=== PATIENT | male | born 1960 | race Caucasian/White ===

== ENCOUNTER 2021-07-26 09:36 | Outpatient (REF) | payer OTHER, SELFPAY ==
[2021-07-26 11:09] LABS: Alanine Aminotransferase 21 U/L (0-40); Albumin Level 4.1 g/dL (3.5-5.0); Alkaline Phosphatase 55 U/L (39-117); Anion Gap 12 (12-20); Aspartate Amino Transferase 20 U/L (5-37); Bilirubin Total 0.4 mg/dL (0.0-1.0); Blood Urea Nitrogen 19 mg/dL (9-16); Calcium 9.1 mg/dL (8.4-10.2); Carbon Dioxide 25 mmol/L (22-29); Chloride 107 mmol/L (96-108); Cholesterol 200 mg/dL; Estimated Glomerular Filt Rate > 60; Glucose Fasting 103 mg/dL (60-99); HDL Cholesterol 71 mg/dL; LDL Cholesterol Calculated 99 mg/dl; Potassium 4.3 mmol/L (3.3-5.1); Sodium 140 mmol/L (135-145); Total Protein 6.6 g/dL (6.5-8.0); Triglycerides 152 mg/dL
[2021-07-26 11:31] LABS: Prostate Specific Antigen Scr 0.32 ng/mL (<0.05-4.0); TSH reflex Free T4 0.94 uIU/mL (0.32-4.0)
== END 2021-07-26 09:37 | disposition home or self-care (01) ==
LOC: HO.WFDLDS 09:36
PROVIDERS: Visit Provider Family Medicine
DX: Z00.00 Encounter for general adult medical examination without abnormal findings (principal); Z12.5 Encounter for screening for malignant neoplasm of prostate
CPT/HCPCS: 36415; 80053; 80061; 84153; 84443

== ENCOUNTER 2022-01-15 10:56 | Outpatient (REF) | payer OTHER, SELFPAY ==
[2022-01-15 14:03] LABS: Basophils Percent Auto 0.9 % (0-2); Eosinophils Absolute Auto 0.1 X10*3/uL (0.0-0.4); Eosinophils Percent Auto 1.6 % (0-4); Hematocrit 44.7 % (42.0-52.0); Hemoglobin 15.6 g/dl (14.0-18.0); Imm Gran Abs Auto 0.01 X10*3/uL (0.00-0.03); Imm Gran Pct Auto 0.2 % (0.0-0.4); Lymphocytes Percent Auto 45.9 % (20-40); MANUAL DIFF FLAG SCAN; Mean Corpuscular HGB Conc 34.9 g/dl (31.0-36.0); Mean Corpuscular Hemoglobin 32.8 pg (27.0-33.0); Mean Corpuscular Volume 94.1 fL (80.0-98.0); Mean Platelet Volume 9.5 fL (9.4-12.4); Monocytes Absolute Auto 0.5 X10*3/uL (0.1-1.2); Monocytes Percent Auto 10.4 % (2-11); Neutrophils Absolute Auto 1.8 x10*3/uL (2.0-8.3); Platelet Count 170 X10*3/uL (160-400); Red Blood Count 4.75 X10*6/uL (4.60-5.80); Red Cell Distribution Width 11.7 % (11.0-16.0); SCAN SMEAR FLAG 1; White Blood Count 4.4 X10*3/uL (4.8-10.8)
[2022-01-15 14:45] LABS: SLIDE REVIEW VERIFIED
== END 2022-01-15 10:57 | disposition home or self-care (01) ==
LOC: HO.WFDLDS 10:56
PROVIDERS: Visit Provider Hospitalist
DX: N64.9 Disorder of breast, unspecified (principal)
CPT/HCPCS: 36415; 85025

== ENCOUNTER 2022-02-27 07:28 | Outpatient (REF) | payer OTHER, SELFPAY ==
[2022-02-27 12:41] LABS: Alanine Aminotransferase 20 U/L (0-40); Alkaline Phosphatase 40 U/L (39-117); Anion Gap 13 (12-20); Aspartate Amino Transferase 21 U/L (5-37); Bilirubin Total 0.7 mg/dL (0.0-1.0); Blood Urea Nitrogen 16 mg/dL (9-16); Calcium 8.8 mg/dL (8.4-10.2); Carbon Dioxide 28 mmol/L (22-29); Chloride 104 mmol/L (96-108); Estimated Glomerular Filt Rate > 60; Glucose Fasting 100 mg/dL (60-99); Potassium 4.3 mmol/L (3.3-5.1); Sodium 141 mmol/L (135-145); Total Protein 6.4 g/dL (6.5-8.0)
[2022-02-27 13:08] LABS: TSH reflex Free T4 1.25 uIU/mL (0.32-4.0)
[2022-02-28 09:04] LABS: Prolactin 10.8 ng/mL (2.0-18.0)
[2022-03-03 19:39] LABS: Estradiol Ultra Sensitive 21 pg/mL (< OR = 29)
[2022-03-04 13:44] LABS: Testosterone, Free 73.8 pg/mL (35.0-155.0); Testosterone, Total 636 ng/dL (250-1100)
== END 2022-02-27 07:29 | disposition home or self-care (01) ==
LOC: HO.WFDLDS 07:28
PROVIDERS: Visit Provider Family Medicine
DX: Z00.00 Encounter for general adult medical examination without abnormal findings (principal); N64.9 Disorder of breast, unspecified
CPT/HCPCS: 36415; 80053; 82670; 83002; 84146; 84402; 84403; 84443

== ENCOUNTER 2022-03-26 10:38 | Outpatient (REF) | payer OTHER, SELFPAY ==
--- NOTE | ~2022-03-26 | MM_ITS ---
EXAMINATION: MM DIAGNOSTIC DIGITAL BREAST TOMOSYNTHESIS, BILATERAL US DIAGNOSTIC ULTRASOUND BREAST, BILATERAL CLINICAL INFORMATION: 61-year-old male with nipple/retroareolar fullness and tenderness, greater on right, recently decreased. No prior breast imaging. COMPARISON: None (current study represents initial baseline exam). TECHNIQUE: Digital breast tomosynthesis is performed in both the craniocaudal and mediolateral oblique views along with computer-aided detection (CAD). Synthesized 2D images are generated from the tomosynthesis. Additional left CC view is provided. Ultrasound bilateral breasts is performed using grayscale imaging and color Doppler without and with harmonics. Imaging targeted to the periareolar and retroareolar breasts. FINDINGS: The breasts are almost entirely fatty (ACR BI-RADS breast composition Category a). There is mild benign gynecomastia retroareolar right breast. No definite gynecomastia pattern on left. Neither breast shows mass or architectural abnormality. No abnormal calcifications. The axilla and skin contours are unremarkable. No skin thickening or coarsening of the stromal markings. Ultrasound demonstrates no cystic or solid mass or architectural abnormality. There is trace gynecomastia immediately beneath right nipple less conspicuous than the mammography. No skin thickening or edema tracking in soft tissue planes. Results are discussed with the patient at time of visit. MM/MM tomosynthesis diagnostic BI IMPRESSION: 1. Mild benign gynecomastia retroareolar right breast. 2. No mammographic evidence of malignancy or inflammatory changes. 3. Unremarkable bilateral ultrasound. ASSESSMENT: BI-RADS 2: Benign RECOMMENDATION: -Patient may be managed based on the clinical impression. -If clinically indicated, further evaluation may be considered with surgical consult.
== END 2022-03-26 10:39 | disposition home or self-care (01) ==
LOC: HO.MAMMO 10:38
PROVIDERS: PCP Family Medicine; Visit Provider Family Medicine
DX: N64.4 Mastodynia (principal); N62 Hypertrophy of breast; N64.9 Disorder of breast, unspecified
CPT/HCPCS: 76642; 77062; 77066

== ENCOUNTER 2022-09-17 09:57 | Outpatient (AMB) | payer OTHER, SELFPAY ==
[2022-09-17 10:02] VITALS: BP 128/80; PULSE 109; O2SAT 98; BMI 24.7
--- NOTE | 2022-09-17 10:02 | MHC.PC.OV ---
Vital Signs 09/17/22 10:02 Height 5 ft 10 in Weight 172 lb BMI 24.7 BP 128/80 Blood Pressure Location Lt brachial Position Sitting Pulse 109 H Pulse Source Pulse Oximeter Pulse Oximetry (%) 98 Oxygen Delivery Method Room Air Intake Visit Reasons: f/u ekg and chronic conditions Intake Note: Patient is here for follow up on ekg, and chronic conditions. Allergies No Known Allergies Allergy (Verified 09/17/22 10:06) Tobacco use date assessed: 09/17/22 Dental Screening Dental Screen Date: 09/17/22 Did you have a dental visit in the last 12 months?: Yes Did you have a dental problem in the last 6 months where you did not have access to dental care?: No Was dental information given to patient?: No HPI f/u ekg and chronic conditions HPI Details 62 y/o male presents to f/u EKG and chronic conditions. Pt had been having complaints of fatigue with tachycardia. He also was dehydrated last office visit. Pt states he feels much improved today. Pt reports he had a rash after getting his covid booster and his shingles shot. He is unsure which injection had given him the rash. He reports ongoing rash. [facility] Medical History Hernia Surgical History History of hernia surgery Family History Other Mental health disorder Substance use disorder Social History Housing: House Alcohol intake: current Alcohol intake frequency: 3 or more drinks per day Alcohol type: beer Patient Tobacco Use Status: Never used Tobacco e-Cigarette/Vaping Use: Never Used Second Hand Smoke Exposure: No service: No Current occupational status: employed Current occupational exposures/hazards: No Cognitive needs: No Hearing needs: No Vision needs: Yes (glasses) Questionnaire Thrive Questionnaire Date Thrive assessed: 11/07/21 MIKE-7 AMB Questionnaire MIKE-7 Date IMKE - 7 assessed: 03/07/22 Source: Developed by Drs. Emmett Ma, Abiola Alvarez, Khalif Genao and colleagues, with an educational iftikhar from [employer]. Review of Systems Const Denies chills, Denies fatigue, Denies fever(s), Denies headache(s) and Denies weakness ENT Denies dizziness and Denies headache(s) Card Denies chest pain, Denies lightheadedness, Denies dyspnea and Denies other (Palpitations) Resp Denies cough, Denies dyspnea, Denies wheezing and Denies other ( shortness of breath) Musc Denies numbness and Denies tingling Neuro Denies dizziness, Denies headache(s), Denies numbness, Denies tingling, Denies paresthesias and Denies weakness Psych Denies anxiety and Denies depression Endo Denies fatigue Aller/Immun Denies wheezing Physical exam (Primary Care) Vital Signs: Last Vital Signs Pulse 109 H 09/17/22 10:02 BP 128/80 09/17/22 10:02 Pulse Ox 98 09/17/22 10:02 Oxygen Delivery Method Room Air 09/17/22 10:02 BMI result Body Mass Index 24.7 Tobacco/Smoking Status: Tobacco use Status Tobacco use date assessed 09/17/22 09/17/22 10:10 Patient Tobacco Use Status Never used Tobacco 09/17/22 10:10 e-Cigarette/Vaping Use Never Used 09/17/22 10:10 Thrive Assessment: Date of Thrive Assessment Date Thrive assessed 11/07/21 09/17/22 10:10 Const General: no acute distress and well developed Nutritional Appearance: well nourished Orientation/consciousness: patient oriented x3 HENMT Head: Yes normocephalic and Yes atraumatic Eyes General: appearance normal, both eyes and all related structures Pupils: Equal, round and reactive pupils present EOM: EOMs intact bilaterally Resp Effort & Inspection: normal respiratory effort Auscultation: clear to auscultation bilaterally Cardio Rate: regular rate Rhythm: regular rhythm Heart sounds: S1 normal heart sound present, S2 normal heart sound present, no gallops, no murmurs and no rubs Neuro General: patient oriented x3 and gait normal Cranial nerves: Yes Equal, round and reactive pupils present Psych Affect: normal affect Office Procedures EKG [id number], Complete Assessment and Plan Assessment & Plan (1) Fatigue: Code(s): R53.83 - Other fatigue Plan: Much improved since acute illness at prior visit. EKG today shows normal sinus rhythm with right bundle-branch block seen on prior, no ST-T-wave changes Continue to hydrate well (2) Right bundle branch block: Code(s): I45.10 - Unspecified right bundle-branch block Plan: No clear cause. He has no chest pain and no other symptoms currently. Offered to refer him to cardiology but he would like to hold off on this currently Will follow (3) Rash: Code(s): R21 - Rash and other nonspecific skin eruption Plan: Rash at right leg Appears to be dermatitis I have given him a script for betamethasone Orders: Orders Comprehensive [place]. Panel Fast Today Z00.00 - Encounter for general adult medical examination without abnormal findings Lipid Panel Today Z00.00 - Encounter for general adult medical examination without abnormal findings Prostate Specific Antigen Scr Today Z12.5 - Encounter for screening for malignant neoplasm of prostate TSH reflex Free T4 Today Z00.00 - Encounter for general adult medical examination without abnormal findings Microalbumin, Random (w Creat) Today I10 - Essential (primary) hypertension UA and rflx microscopic Today Z00.00 - Encounter for general adult medical examination without abnormal findings Medications: New betamethasone valerate 0.1% 1 appl topical DAILY PRN 45 grams 1RF skin irritation 14 days Coding Level of Care Code Est Pt Level 3 (75494) Diagnoses Fatigue R53.83 Right bundle branch block I45.10 Rash R21 CPT Codes EKG - CPT: 02255-[id number], Complete ([id number])
== END 2022-09-17 11:10 | disposition home or self-care (01) ==
PROVIDERS: PCP Family Medicine; Visit Provider Family Medicine
DX: R53.83 Other fatigue (principal); I45.10 Unspecified right bundle-branch block; R21 Rash and other nonspecific skin eruption
CPT/HCPCS: 93000; 99213

== ENCOUNTER 2022-11-19 11:51 | Outpatient (AMB) | payer OTHER, SELFPAY ==
[2022-11-19 12:11] VITALS: BP 110/58; PULSE 60; O2SAT 98; BMI 24.8
--- NOTE | 2022-11-19 12:11 | MHC.PC.OV ---
Vital Signs 11/19/22 12:11 Height 5 ft 10 in Weight 173 lb 2 oz BMI 24.8 BP 110/58 L Blood Pressure Location Lt brachial Position Sitting Pulse 60 Pulse Source Pulse Oximeter Pulse Oximetry (%) 98 Oxygen Delivery Method Room Air Intake Visit Reasons: CPE Intake Note: Patient is here for his physical, and dry sin problems. Allergies No Known Allergies Allergy (Verified 11/19/22 12:12) Tobacco use date assessed: 11/19/22 HPI CPE HPI Details Patient?presents?for?CPE?with?follow-up?labs?and?health?maintenance No?recent?labs?to?review. Patient?feels?well.??No?chest?pain?or?shortness?of?breath. Exercising?regularly. Complaint?of?dry?skin?and?rash?which?comes?each?year?in?the?winter.??Resolves?in?summer?and?spring. Chronic?hearing?loss.??This?seems?rather?stable?at?present.??He?is?checked?frequently?at?work. He?says?he?will?let?me?know?if?he?has?any?significant?change?or?concerns. Feeling?well?today.??No?other?complaints. [facility] Medical History Hernia Surgical History History of hernia surgery Family History Other Mental health disorder Substance use disorder Social History Housing: House Alcohol intake: current Alcohol intake frequency: 3 or more drinks per day Alcohol type: beer Patient Tobacco Use Status: Never used Tobacco e-Cigarette/Vaping Use: Never Used Second Hand Smoke Exposure: No service: No Current occupational status: employed Current occupational exposures/hazards: No Cognitive needs: No Hearing needs: No Vision needs: Yes (glasses) Questionnaire Thrive Questionnaire Date Thrive assessed: 11/07/21 MIKE-7 AMB Questionnaire MIKE-7 Date MIKE - 7 assessed: 03/07/22 Source: Developed by Drs. Emmett Ma, Abiola Alvarez, Khalif Genao and colleagues, with an educational iftikhar from [employer]. Review of Systems Const Denies chills, Denies fatigue, Denies fever(s), Denies headache(s) and Denies weakness Eyes Denies change in vision ENT Denies dizziness, Denies headache(s), Reports hearing loss, Denies nasal congestion, Denies sinus pain, Denies sinus pressure and Denies sore throat Card Denies chest pain, Denies lightheadedness, Denies dyspnea and Denies other (palpitations) Resp Denies cough, Denies dyspnea and Denies wheezing GI Denies abdominal pain, Denies melena, Denies hematochezia, Denies change in bowel habits, Denies dyspepsia and Denies nausea Denies hematuria and Denies dysuria Musc Denies abnormal gait, Denies myalgias, Denies arthralgias, Denies numbness and Denies tingling Skin/Breast Reports rash, Denies unusual bruising and Denies wounds Neuro Denies abnormal gait, Denies dizziness, Denies headache(s), Denies memory loss, Denies numbness, Denies Sensory deficit (Neuro), Denies tingling and Denies weakness Psych Denies anxiety, Denies depression and Denies memory loss Endo Denies cold intolerance, Denies fatigue, Denies heat intolerance, Denies polydipsia and Denies polyuria Johny/Lymph Denies easy bleeding and Denies easy bruising Aller/Immun Denies wheezing Physical exam (Primary Care) Vital Signs: Last Vital Signs Pulse 60 11/19/22 12:11 BP 110/58 L 11/19/22 12:11 Pulse Ox 98 11/19/22 12:11 Oxygen Delivery Method Room Air 11/19/22 12:11 BMI result Body Mass Index 24.8 Tobacco/Smoking Status: Tobacco use Status Tobacco use date assessed 11/19/22 11/19/22 12:13 Patient Tobacco Use Status Never used Tobacco 11/19/22 12:13 e-Cigarette/Vaping Use Never Used 11/19/22 12:13 Thrive Assessment: Date of Thrive Assessment Date Thrive assessed 11/07/21 11/19/22 12:13 Const General: no acute distress, well developed, alert and awake Nutritional Appearance: well nourished Orientation/consciousness: patient oriented x3 [facility] Head: Yes normocephalic and Yes atraumatic Ears: hearing grossly normal bilaterally and TM's normal bilaterally General nose exam: Normal external nose present and Normal nares present Mouth: Normal oral and palatal mucosa present and moist mucous membranes Teeth and gingiva: dentition normal Throat: Yes posterior oropharynx normal Eyes Pupils: Equal, round and reactive pupils present and Pupil accommodation reflex normal EOM: EOMs intact bilaterally Neck Neck: Yes normal visual inspection, Yes no lymphadenopathy and Yes trachea midline Thyroid: Thyroid normal Carotids: no bruits Lymphatic: no lymphadenopathy noted Chest Chest palpation & inspection: normal inspection of the chest Resp Effort & Inspection: normal respiratory effort Auscultation: clear to auscultation bilaterally Cardio Rate: regular rate Rhythm: regular rhythm Heart sounds: S1 normal heart sound present, S2 normal heart sound present, no gallops, no murmurs and no rubs Bruits: no abdominal aortic bruits and no carotid bruits GI Palpation (GI): No Abdominal aortic bruit present, Soft to palpation, nontender, No hepatosplenomegaly present and No Rebound tenderness present Auscultation: normal bowel sounds General: Yes no CVA tenderness Back/Spine/Pelvis Back: no CVA tenderness Cervical Spine: cervical ROM normal and No Cervical spine tenderness Thoracic/Lumbar Spine: thoraco-lumbar ROM normal, No pain with thoraco-lumbar ROM, No thoracic spinal tenderness and No lumbar spinal tenderness Skin Other: Patches?of?rash?on?forearms?and?shins. Lesions: no lesions Rashes: no rashes Trauma: no lacerations or abrasions Wounds: no wounds Nails: normal Neuro General: patient oriented x3, gait normal and CN's II-XI intact bilaterally Cranial nerves: Yes Equal, round and reactive pupils present Cognition (Neuro): normal cognition Gait exam (Neuro): Normal gait present Motor exam (neuro): 5/5 motor strength present throughout Sensory Exam: No Sensory deficit (Neuro) Deep tendon reflexes (DTR's): Right patellar reflex intensity grade: 2+ and Left patellar reflex intensity grade: 2+ Extrem General: Yes normal to inspection and No edema Psych Appearance: grossly normal Affect: normal affect Attitude: cooperative Thought process: Normal thought process present Assessment and Plan Assessment & Plan (1) Adult general medical exam: Code(s): Z00.00 - Encounter for general adult medical examination without abnormal findings Plan: 62-year-old?male?presents?for?complete?physical?exam Encouraged?healthy?diet?with?active?lifestyle?and?plenty?of?exercise (2) Hearing loss: Code(s): H91.90 - Unspecified hearing loss, unspecified ear Plan: Stable. Patient?gets?regular?hearing?checks?at?work. He?will?let?me?know?if?he?has?any?significant?changes?or?concerns?and?I?will?refer?him?to?ENT (3) Rash: Code(s): R21 - Rash and other nonspecific skin eruption Plan: Rash?associated?with?dry?skin?each?winter. Likely?eczema.??See?below. (4) Eczema: Code(s): L30.9 - Dermatitis, unspecified Plan: Can?use?some?betamethasone?for?flare?up Avoid?dryness?and?can?use?moisturizers?frequently. (5) Right bundle branch block: Code(s): I45.10 - Unspecified right bundle-branch block Plan: Family?history?of?cardiomyopathy?and?Right?bundle-branch?block?seen?incidentally?on?EKG. No?pain?or?symptoms. He?declined?referral?to?Cardiology. He?will?let?me?know?if?he?has?any?problems?or?concerns.??We?can?check?an?EKG?again?at?his?annual?physical?next?year. (6) Screening for colon cancer: Code(s): Z12.11 - Encounter for screening for malignant neoplasm of colon Plan: Last?colonoscopy?was?10?years?ago.??Referred?to?GI (7) Screening for prostate cancer: Code(s): Z12.5 - Encounter for screening for malignant neoplasm of prostate Plan: Check?PSA Orders: Referrals Gastroenterology Referral Z12.11 - Encounter for screening for malignant neoplasm of colon Medications: Refilled betamethasone valerate 0.1% 1 appl topical DAILY 14 days PRN 45 grams 1RF skin irritation Coding Level of Care Code Est Pt Level 3 (20849) Est Pt Prev Care 40-64y(27671) Diagnoses Adult general medical exam Z00.00 Hearing loss H91.90 Rash R21 Eczema L30.9 Right bundle branch block I45.10 Screening for colon cancer Z12.11 Screening for prostate cancer Z12.5
== END 2022-11-19 13:21 | disposition home or self-care (01) ==
PROVIDERS: PCP Family Medicine; Visit Provider Family Medicine
DX: Z00.00 Encounter for general adult medical examination without abnormal findings (principal); R21 Rash and other nonspecific skin eruption; L30.9 Dermatitis, unspecified; I45.10 Unspecified right bundle-branch block; H91.90 Unspecified hearing loss, unspecified ear
CPT/HCPCS: 99396

== ENCOUNTER 2022-12-31 08:12 | Outpatient (REF) | payer OTHER, SELFPAY ==
[2022-12-31 11:18] LABS: MANUAL DIFF FLAG NO
[2022-12-31 11:44] LABS: Basophils Absolute Auto 0.1 X10*3/uL (0.0-0.2); Basophils Percent Auto 1.2 % (0-2); Eosinophils Absolute Auto 0.1 X10*3/uL (0.0-0.4); Eosinophils Percent Auto 2.9 % (0-4); Hematocrit 45.7 % (42.0-52.0); Hemoglobin 15.9 g/dl (14.0-18.0); Imm Gran Abs Auto 0.01 X10*3/uL (0.00-0.03); Imm Gran Pct Auto 0.2 % (0.0-0.4); Lymphocytes Absolute Auto 1.5 X10*3/uL (1.2-4.9); Lymphocytes Percent Auto 31.5 % (20-40); Mean Corpuscular HGB Conc 34.8 g/dl (31.0-36.0); Mean Corpuscular Volume 94.8 fL (80.0-98.0); Mean Platelet Volume 9.4 fL (9.4-12.4); Monocytes Absolute Auto 0.5 X10*3/uL (0.1-1.2); Monocytes Percent Auto 10.1 % (2-11); Neutrophils Absolute Auto 2.6 x10*3/uL (2.0-8.3); Neutrophils Percent Auto 54.1 % (45-73); Platelet Count 206 X10*3/uL (160-400); Red Blood Count 4.82 X10*6/uL (4.60-5.80); Red Cell Distribution Width 12.5 % (11.0-16.0); White Blood Count 4.9 X10*3/uL (4.8-10.8)
[2022-12-31 12:10] LABS: Prostate Specific Antigen Scr 0.37 ng/mL (<0.05-4.0)
[2022-12-31 12:40] LABS: Anion Gap 12 (12-20)
[2022-12-31 12:44] LABS: Alanine Aminotransferase 20 U/L (0-40); Alkaline Phosphatase 52 U/L (39-117); Aspartate Amino Transferase 23 U/L (5-37); Bilirubin Total 0.7 mg/dL (0.0-1.0); Blood Urea Nitrogen 12 mg/dL (9-16); Calcium 8.7 mg/dL (8.4-10.2); Carbon Dioxide 27 mmol/L (22-29); Chloride 103 mmol/L (96-108); Cholesterol 194 mg/dL (<200); Estimated Glomerular Filt Rate > 60; Glucose Fasting 99 mg/dL (60-99); HDL Cholesterol 78 mg/dL (>40); LDL Cholesterol Calculated 106 mg/dL (<100); Potassium 4.1 mmol/L (3.3-5.1); Sodium 138 mmol/L (135-145); Total Protein 6.6 g/dL (6.5-8.0); Triglycerides 51 mg/dL (<150)
== END 2022-12-31 08:13 | disposition home or self-care (01) ==
LOC: HO.WFDLDS 08:12
PROVIDERS: Visit Provider Family Medicine
DX: Z00.00 Encounter for general adult medical examination without abnormal findings (principal); R53.83 Other fatigue; Z12.5 Encounter for screening for malignant neoplasm of prostate
CPT/HCPCS: 36415; 80053; 80061; 84153; 84443; 85025

== ENCOUNTER 2023-01-23 11:58 | Outpatient (AMB) | payer OTHER, SELFPAY ==
[2023-01-23 12:12] VITALS: BP 152/77; PULSE 83; BMI 25.3
--- NOTE | 2023-01-23 12:12 | MHC.OFFVIS ---
Intake Vital Signs 01/23/23 12:12 Height 5 ft 10 in Weight 176 lb 5.917 oz BMI 25.3 BP 152/77 H Blood Pressure Location Rt brachial Position Sitting Pulse 83 Intake Visit Reasons: Colonoscopy Screening Intake Note: Patient presents to in office visit today as a new patient for colonoscopy screening. CC: Patient reports he had a colonoscopy done 10 years ago at [facility]. Denies having any GI symptoms or concerns. [facility] Required: No Accompanied by: Self / Same As Patient Allergies No Known Allergies Allergy (Verified 01/23/23 12:20) Medication List - Last Reconciled 01/23/23 by Nilsa Parmar PA-C betamethasone valerate 0.1% 1 appl topical DAILY PRN 14 days HPI HPI Comments History of Present Illness Details A 62 y/o male due for 10 year screening. No GI or general complaints Normal bowel pattern Good appetite No N/V/ D/ fever or chills PFSH Medical History Hernia Surgical History History of hernia surgery Family History Other Mental health disorder Substance use disorder Social History Housing: House Alcohol intake: current Alcohol intake frequency: 3 or more drinks per day Alcohol type: beer Patient Tobacco Use Status: Never used Tobacco e-Cigarette/Vaping Use: Never Used Second Hand Smoke Exposure: No service: No Current occupational status: employed Current occupational exposures/hazards: No Cognitive needs: No Hearing needs: No Vision needs: Yes (glasses) Review of Systems Const All systems reviewed & are unremarkable except as noted in HPI and below Card Denies chest pain and Denies dyspnea Resp Denies dyspnea GI Denies abdominal pain, Denies hematochezia, Denies change in bowel habits, Denies heartburn, Denies diarrhea, Denies nausea and Denies vomiting Physical Exam Vital Signs: Last Vital Signs Pulse 83 01/23/23 12:12 BP 152/77 H 01/23/23 12:12 BMI result Body Mass Index 25.3 Const General: cooperative, healthy appearing, comfortable and no acute distress Orientation/consciousness: patient oriented x3 Limitations: no limitations Eyes Conjunctivae: conjunctivae normal Resp Effort & Inspection: normal respiratory effort and able to speak in complete sentences Auscultation: clear to auscultation bilaterally, no rales, no rhonchi and no wheezes Cardio Rate: regular rate Rhythm: regular rhythm Heart sounds: S1 normal heart sound present and S2 normal heart sound present GI Palpation (GI): Soft to palpation and nontender Auscultation: normal bowel sounds Skin General skin exam: no rashes or lesions noted Neuro General: patient oriented x3 Extrem General: Yes full ROM Psych Appearance: grossly normal and well kempt Mental Status: mental status grossly normal Speech and movement: Normal speech and movement present Affect: normal affect Attitude: cooperative Thought process: Normal thought process present Thought content: Normal thought content present Insight: Good insight present (Psych) Judgement: Good judgement present (Psych) Assessment & Plan Assessment & Plan (1) Encounter for screening colonoscopy for [id number] patient: Code(s): Z12.11 - Encounter for screening for malignant neoplasm of colon Plan: colon screening Plan Colon screening- MG prefer morning pls Orders: Orders Colonoscopy - GI Use Only 01/23/23 Z12.11 - Encounter for screening for malignant neoplasm of colon Medications: New bisacodyl (Dulcolax (bisacodyl)) Day before procedure, prep day Take 4 tablets by mouth upon awakening followed by large glass of water 20 mg (4 x 5 mg) PO ONCE 1 day 4 tabs 0RF colonoscopy prep Z12.11 - Encounter for screening for malignant neoplasm of colon polyethylene glycol 3350 (Miralax) Take as directed by mouth the day before your procedure. 238 grams PO ONCE 1 day PRN 238 grams 0RF laxative effect Patient Instructions: Colon screening- MG prep, reviewed, lit given need escort due to anesthesia Call with questions or concerns Coding Level of Care Code New Pt Level 3 (60276) Diagnoses Encounter for screening colonoscopy for [id number] patient Z12.11 Time Spent (min) 30
== END 2023-01-23 14:27 | disposition home or self-care (01) ==
PROVIDERS: PCP Family Medicine; Visit Provider Physician Assistant
DX: Z01.818 Encounter for other preprocedural examination (principal); Z12.11 Encounter for screening for malignant neoplasm of colon
CPT/HCPCS: S0285

== ENCOUNTER → 2023-01-23 11:58 | Outpatient (BNVA) | payer OTHER, SELFPAY | PROVIDERS: PCP Family Medicine; Visit Provider Physician Assistant ==

== ENCOUNTER 2023-02-14 15:29 | Outpatient (AMB) | payer OTHER, SELFPAY ==
--- NOTE | 2023-02-14 15:17 | MHC.PC.OV ---
Intake Visit Reasons: f/u labs Intake Note: Patient is following up on bloodwork today. Allergies No Known Allergies Allergy (Verified 02/14/23 15:20) Tobacco use date assessed: 02/14/23 HPI f/u labs HPI Details Patient?presents?for?follow-up?labs?and?discussion?of?blood?pressure Reviewed?labs?with?patient-all?within?normal?limits Blood?pressure?was?elevated?at?gastroenterology?appointment.??He?notes?that?sometimes?they?fluctuate. He?is?able?to?check?his?blood?pressure?at?home. Feels?well.??No?complaints PFSH Medical History Hernia Surgical History History of hernia surgery Family History Other Mental health disorder Substance use disorder Social History Housing: House Alcohol intake: current Alcohol intake frequency: 3 or more drinks per day Alcohol type: beer Patient Tobacco Use Status: Never used Tobacco e-Cigarette/Vaping Use: Never Used Second Hand Smoke Exposure: No service: No Current occupational status: employed Current occupational exposures/hazards: No Cognitive needs: No Hearing needs: No Vision needs: Yes (glasses) Questionnaire Thrive Questionnaire Date Thrive assessed: 11/07/21 MIKE-7 AMB Questionnaire MIKE-7 Date MIKE - 7 assessed: 03/07/22 Source: Developed by Drs. Emmett Ma, Abiola Alvarez, Khalif Genao and colleagues, with an educational iftikhar from [employer]. Review of Systems Const Denies chills, Denies fatigue, Denies fever(s), Denies headache(s) and Denies weakness ENT Denies dizziness and Denies headache(s) Card Denies dyspnea Resp Denies cough, Denies dyspnea, Denies wheezing and Denies other ( shortness of breath) Musc Denies numbness and Denies tingling Neuro Denies dizziness, Denies headache(s), Denies numbness, Denies tingling, Denies paresthesias and Denies weakness Psych Denies anxiety and Denies depression Endo Denies fatigue Aller/Immun Denies wheezing Physical exam (Primary Care) Tobacco/Smoking Status: Tobacco use Status Tobacco use date assessed 02/14/23 02/14/23 15:22 Patient Tobacco Use Status Never used Tobacco 02/14/23 15:22 e-Cigarette/Vaping Use Never Used 02/14/23 15:22 Thrive Assessment: Date of Thrive Assessment Date Thrive assessed 11/07/21 02/14/23 15:22 Const Other: No?exam-telemedicine?appointment Telehealth Telehealth Location of provider rendering services: practice address Location of patient: address on file Patient Identification confirmed using: Name, : Yes Telehealth method: voice only Patient verbally consented to treatment: Yes Patient verbally consented to billing insurance company: Yes Patient informed of any privacy concerns related to visit: Yes Minutes spent on Phone/Video with Pt.: 6 Assessment and Plan Assessment & Plan (1) Elevated blood pressure reading: Code(s): R03.0 - Elevated blood-pressure reading, without diagnosis of hypertension Plan: Patient?had?an?elevated?blood?pressure?in?January?at?gastroenterology?appointment He?notes?that?blood?pressures?are?occasionally?elevated?or?fluctuate?and?he?has?a?family?history?of?hypertension?though?he?has?never?been?diagnosed?with?hypertension?and?his?blood?pressure?was?well?controlled?at?his?last?visit?with?me. He?will?check?his?blood?pressures?in?the?community?and?at?home He?will?let?me?know?if?blood?pressures?are?consistently?elevated. Orders: Orders Microalbumin, Random (w Creat) 10 Months I10 - Essential (primary) hypertension, Z00.00 - Encounter for general adult medical examination without abnormal findings Prostate Specific Antigen Scr 10 Months Z00.00 - Encounter for general adult medical examination without abnormal findings, Z12.5 - Encounter for screening for malignant neoplasm of prostate TSH reflex Free T4 10 Months Z00.00 - Encounter for general adult medical examination without abnormal findings Comprehensive [place]. Panel Fast 10 Months Z00.00 - Encounter for general adult medical examination without abnormal findings Lipid Panel 10 Months Z00.00 - Encounter for general adult medical examination without abnormal findings UA and rflx microscopic 10 Months Z00.00 - Encounter for general adult medical examination without abnormal findings Coding Level of Care Code Tele Est Pt Level 2 (71463) Diagnoses Elevated blood pressure reading R03.0
== END 2023-02-14 15:45 | disposition home or self-care (01) ==
LOC: HO.HMGFM 15:30
PROVIDERS: PCP Family Medicine; Visit Provider Family Medicine
DX: R03.0 Elevated blood-pressure reading, without diagnosis of hypertension (principal)
CPT/HCPCS: 99441

== ENCOUNTER 2023-07-03 07:27 | Day surgery (SDC) | payer OTHER, SELFPAY ==
[2023-07-01 15:22] VITALS: BMI 25.3
--- NOTE | 2023-07-02 11:58 | P.CONAN_ITS ---
Documented by User: Vandana Stone NP 07/02/23 11:58 HPI - Anesthesia Eval Consult details Narrative: 62yo M for Colonoscopy Fam Hx HOCM PMFSH Active Problems Active Problems: All Active Problems Elevated blood pressure reading (Acute) Encounter for screening colonoscopy for [id number] patient (Acute) Eczema (Acute) Rash (Acute) Right bundle branch block (Acute) Fatigue (Acute) Breast mass in male (Acute) Abnormal nipple (Acute) Family history of hypertrophic cardiomyopathy (Acute) Elevated fasting glucose (Acute) Screening for colon cancer (Acute) Screening for prostate cancer (Acute) Adult general medical exam (Acute) Hearing loss (Acute) Cerumen debris on tympanic membrane (Acute) Skin lesion of foot (Acute) Right knee pain (Acute) Laboratory tests ordered as part of a complete physical exam (CPE) (Acute) Past Medical History Medical History (Updated 07/01/23 @ 15:11 by Sanaz Colmenares RN) Hearing loss RBBB (right bundle branch block) Hernia Family History Family History Other Mental health disorder Substance use disorder Surgical History Surgical History History of hernia surgery Social History Social History Housing: House Alcohol intake: current Alcohol intake frequency: 3 or more drinks per day Alcohol type: beer Patient Tobacco Use Status: Former Tobacco user e-Cigarette/Vaping Use: Never Used Second Hand Smoke Exposure: No Use of substances other than those prescribed or required for medical reasons: No Are you DNR?: No Advance Directives: No Advance Directives Information Provided: Yes service: No Current occupational status: employed Current occupational exposures/hazards: No Cognitive needs: No Hearing needs: No Vision needs: Yes (glasses) Meds Allergies Allergy/AdvReac Type Severity Reaction Status Date / Time No Known Allergies Allergy Verified 02/14/23 15:20 Exam Height,Weight and Vital Signs: Height 5 ft 10 in Weight 79.832 kg Assessment and Plan Assessment Anesthesia Assessment: Chart Reviewed Documented by User: Sakina Kraft MD 07/03/23 08:01 [facility] Past Medical History Medical History (Updated 07/01/23 @ 15:11 by Sanaz Colmenares RN) Hearing loss RBBB (right bundle branch block) Hernia Family History Family History Other Mental health disorder Substance use disorder Family history of problems with anesthesia: No Surgical History Surgical History History of hernia surgery History of Problems with Anesthesia: No Social History Social History Housing: House Alcohol intake: current Alcohol intake frequency: 3 or more drinks per day Alcohol type: beer Patient Tobacco Use Status: Former Tobacco user e-Cigarette/Vaping Use: Never Used Second Hand Smoke Exposure: No Use of substances other than those prescribed or required for medical reasons: No Are you DNR?: No Advance Directives: No Advance Directives Information Provided: Yes service: No Current occupational status: employed Current occupational exposures/hazards: No Cognitive needs: No Hearing needs: No Vision needs: Yes (glasses) Meds Allergies Allergy/AdvReac Type Severity Reaction Status Date / Time No Known Allergies Allergy Verified 02/14/23 15:20 Exam Airway Mallampati Class: II (multiple crowns laterally) TM Dist: >3cm Neck ROM: Full Heart: rrr Lungs: cta Assessment and Plan Assessment Anesthesia Assessment: Anesthesia Plan Discussed Final Anesthetic Review Family History of Problems with Anesthesia: No History of Problems with Anesthesia: No NPO: Yes ASA Class: III Final Preanesthetic Review: No Changes in Pt Med Stat, Meds/Allgs Chart Reviewed and Consent Obtained/Reviewed Patient Risk: Low Procedure Risk: Low Anesthetic Plan Anesthetic Plan: MAC: Disposition: Standard PACU
--- NOTE | 2023-07-03 05:54 | P.HPSUR_ITS ---
Pre-Procedural Eval Section A - 24 Hr Update-Section A only Date of Service: 07/03/23 Section B - Complete if H&P > 30 days Chief Complaint: Encounter for screening for malignant neoplasm of Relevant Family History (Specify if Yes): No Relevant Social History: None Present Medications: see Short Stay Collaborative assessment Medical History: Significant History (Hearing loss RBBB (right bundle branch b lock) Hernia) History of Previous Operations: Relevant previous surgery/procedure and date(s) (hernia surgery) Allergies: Allergies Allergy/AdvReac Type Severity Reaction Status Date / Time No Known Allergies Allergy Verified 02/14/23 15:20 Review of Systems Sugical H&P ROS: Negative: Constitution, Cardiovascular, Respiratory, Neurological, Psychiatric, Hem-Onc, Allergic/Immunologic, Gastrointestinal, Genitourinary, Musculoskeletal, Integumentary, Endocrine and Eyes/Ears/Nose/Throat Exam Surgical H&P Exam: Normal: HEENT, Normal: Heart, Normal: Lungs, Normal: Extremities, Normal: Abdomen, Normal: Skin and Normal: Neurological Plan Diagnosis/Plan: Unchanged I have reviewed the history and physical and performed a pertinent physical examination on my patient. No changes have occurred unless specified. Time Spent With Patient Time: Total time managing care of this patient today ____ minutes.
[2023-07-03 07:43] VITALS: BMI 25.0
[2023-07-03 07:45] VITALS: BP 127/79; PULSE 81; RESP 16; TEMP 37.2; O2SAT 96
[2023-07-03] MEDS: Lactated Ringers 1,000 ML 100 ML IVCONT (07:59)
--- NOTE | 2023-07-03 08:34 | P.OPN-COLO_ITS ---
Colonoscopy Operative Note Operative Note Date of Service: 07/03/23 Narrative: Operative Information Procedure Description: Colonoscopy Indication: screening Anesthesia: MAC COLONOSCOPY Instrument: Olympus variable stiffness pediatric scope 190L Colonoscopy Monitoring: Vital signs and clinical assessment, continuous EKG monitoring, Pulse oximetry, Carbon Dioxide monitoring and blood pressure monitoring were done throughout the procedure. Colon withdrawal time was 11 minutes. Procedure: The patient was placed in the left lateral decubitis position and pre-procedure medications were administered. After a digital rectal examination of the ano-rectum, the video colonoscope was inserted into the rectum and advanced through the colon to the cecum/TI. The colonoscope was slowly withdrawn in a retrograde panoramic fashion and the colon mucosa was carefully examined including a retroflexed view of the rectum. Findings and interventions are described below. Procedure Difficulty: moderate Findings: Terminal Ileum- superficially intubated and normal Cecum:normal Ascending Colon: moderate diverticulosis including inverted tics Transverse Colon -normal Descending Colon:normal Sigmoid Colon: moderate diverticulosis Rectum: Retroflexion with small internal hemorrhoids seen, grade I Anorectum - normal Intervention: none Colon preparation: [place] Bowel Preparation Scale Right colon; 2 Transverse colon: 2 Left colon; 2 (0 = Unprepared colon segment with mucosa not seen due to solid stool that cannot be cleared. 1 = Portion of mucosa of the colon segment seen, but other areas of the colon segment not well seen due to staining, residual stool and/or opaque liquid. 2 = Minor amount of residual staining, small fragments of stool and/or opaque liquid, but mucosa of colon segment seen well. 3 = Entire mucosa of colon segment seen well with no residual staining, small fragments of stool or opaque liquid) Impression and Post Procedure Diagnosis: diverticulosis internal hemorrhoids Plan: High fiber diet leaflet Avoid straining at stool, epsom salts and sitz bath, anusol supps or cream Repeat Colonoscopy in 10 years or earlier if clinically indicated Above findings were reviewed with the patient and relevant handouts were provided if indicated.
[2023-07-03 09:05] VITALS: BP 112/70; PULSE 95; RESP 16; TEMP 36.4; O2SAT 96
[2023-07-03 09:20] VITALS: BP 116/85; PULSE 72; RESP 17; TEMP 36.4; O2SAT 96
== END 2023-07-03 10:11 | disposition home or self-care (01) ==
PROVIDERS: PCP Family Medicine; Visit Provider Internal Medicine Gastroenterology
PROC: 0DJD8ZZ Inspection of Lower Intestinal Tract, Via Natural or Artificial Opening Endoscopic (ICD-10-PCS; CPT 45378; principal; 2023-07-03 08:30)
DX: Z12.11 Encounter for screening for malignant neoplasm of colon (principal); K57.30 Diverticulosis of large intestine without perforation or abscess without bleeding; K64.0 First degree hemorrhoids; I45.10 Unspecified right bundle-branch block; R03.0 Elevated blood-pressure reading, without diagnosis of hypertension; Z87.891 Personal history of nicotine dependence; Z79.899 Other long term (current) drug therapy
CPT/HCPCS: 45378; J2704

== ENCOUNTER → 2023-07-03 07:27 | Outpatient (BNV) | payer OTHER, SELFPAY | PROVIDERS: PCP Family Medicine; Visit Provider Internal Medicine Gastroenterology | DX: Z12.11 Encounter for screening for malignant neoplasm of colon (principal); K57.90 Diverticulosis of intestine, part unspecified, without perforation or abscess without bleeding; K64.0 First degree hemorrhoids | CPT/HCPCS: 45378 ==

== ENCOUNTER 2023-11-08 08:29 | Outpatient (REF) | payer OTHER, SELFPAY ==
[2023-11-08 11:23] LABS: Appearance Urine Clear; Color Urine Yellow; Glucose Urine UA Negative (Negative); Leukocyte Esterase Urine Negative (Negative); Nitrite Urine Negative (Negative); PH 7.5 (5.0-9.0); Urine Blood Negative (Negative); Urine Ketones Negative (Negative); Urine Protein Negative (Neg-Trace)
[2023-11-08 12:17] LABS: Alanine Aminotransferase 24 U/L (0-40); Alkaline Phosphatase 46 U/L (39-117); Anion Gap 11 (12-20); Aspartate Amino Transferase 28 U/L (5-37); Bilirubin Total 0.8 mg/dL (0.0-1.0); Blood Urea Nitrogen 11 mg/dL (9-16); Calcium 8.9 mg/dL (8.4-10.2); Carbon Dioxide 25 mmol/L (22-29); Chloride 106 mmol/L (96-108); Cholesterol 203 mg/dL (<200); Estimated Glomerular Filt Rate > 60; Glucose Fasting 96 mg/dL (60-99); HDL Cholesterol 74 mg/dL (>40); LDL Cholesterol Calculated 115 mg/dL (<100); Potassium 3.9 mmol/L (3.3-5.1); Sodium 138 mmol/L (135-145); Total Protein 6.6 g/dL (6.5-8.0); Triglycerides 73 mg/dL (<150)
[2023-11-08 12:30] LABS: Prostate Specific Antigen Scr 0.42 ng/mL (<0.05-4.0)
[2023-11-08 12:33] LABS: TSH reflex Free T4 1.49 uIU/mL (0.32-4.0)
[2023-11-08 12:51] LABS: Creatinine Urine 44.52 mg/dL; Microalbumin Urine < 5.0 mg/L
== END 2023-11-08 08:30 | disposition home or self-care (01) ==
LOC: HO.WFDLDS 08:29
PROVIDERS: Visit Provider Family Medicine
DX: Z00.00 Encounter for general adult medical examination without abnormal findings (principal); I10 Essential (primary) hypertension; Z12.5 Encounter for screening for malignant neoplasm of prostate
CPT/HCPCS: 36415; 80053; 80061; 81003; 82043; 82570; 84153; 84443

== ENCOUNTER 2023-11-22 10:23 | Outpatient (AMB) | payer OTHER, SELFPAY ==
--- NOTE | 2023-11-22 10:25 | MHC.PC.OV ---
Vital Signs 11/22/23 10:28 Height 5 ft 10 in Weight 178 lb 8 oz BMI 25.6 BP 134/78 Blood Pressure Location Lt brachial Position Sitting Respiration 15 Pulse 75 Pulse Source Pulse Oximeter Pulse Oximetry (%) 95 Oxygen Delivery Method Room Air Intake Visit Reasons: CPE Intake Note: annual physical Allergies No Known Allergies Allergy (Verified 11/22/23 11:14) Medication List - Last Reconciled 11/22/23 by Ana Parkinson, CHANNEL DEVELOPMENT DIRECTOR-BC betamethasone valerate 0.1% 1 appl topical DAILY PRN 14 days Tobacco use date assessed: 02/14/23 Dental Screening Dental Screen Date: 09/17/22 HPI HPI Comments History of Present Illness Details 63-year-old male with chronic hearing loss, hypertension, eczema, right bundle branch block w PAC, internal hemorrhoids, diverticulosis, PVD Status post hernia surgery Specialists: [facility] Maintenance: Tdap 2019 Flu today Colon 06/2023 10 year recall PSA 0.42 11/08/23 Here today for CPE Eye exam every 2 years, wears glasses Skin: scabbing of elbows; topical steroid works. Dry spots worse in jones time, can scab and become itchy at times; using lubiderm. It doesn't remedy it completely. Worries about circulation in lower ext; if has a cut takes longer to resolve. Labs from 11/08/2023 showed normal electrolytes, normal renal function, fasting glucose of 96, normal LFTs, total cholesterol 203, LDL 115, HDL 74, triglycerides 73, normal TSH, normal urinalysis Plan PAC new on EKG. He is having no sx. Plan will be to Repeat EKG as outpatient 01/08/24. If cont, refer to Cards. he is not having any card sx. Refer to Derm PVD monitor skin integrity. Cont to exercise. No meds at this time. RTO 6 weeks telehealth/in person f/u EKG This note is constructed using voice recognition software. While every effort has been made to ensure accuracy in global upstream marketing manager, still errors may have been included Sometimes, these errors may affect the content or meaning of the given sentence . An additional 20 was spent addressing the problem(s) noted at [facility] visit. This includes time spent before the visit reviewing the chart, time spent during the visit, and time spent after the visit on documentation [facility] Medical History (Updated 11/22/23 @ 16:43 by Ana Parkinson, [facility]) Hearing loss RBBB (right bundle branch block) Hernia Surgical History History of hernia surgery Family History Other Mental health disorder Substance use disorder Social History Housing: House Alcohol intake: current Alcohol intake frequency: 3 or more drinks per day Alcohol type: beer Patient Tobacco Use Status: Former Tobacco user e-Cigarette/Vaping Use: Never Used Second Hand Smoke Exposure: No service: No Current occupational status: employed Current occupational exposures/hazards: No Cognitive needs: No Hearing needs: No Vision needs: Yes (glasses) Questionnaire PHQ-9 Over the last 2 weeks, how often have you been bothered by any of the following problems? 1. Little interest or pleasure in doing things: not at all 2. Feeling down, depressed, or hopeless: not at all 3. Trouble falling or staying asleep, or sleeping too much: not at all 4. Feeling tired or having little energy: not at all 5. Poor appetite or overeating: not at all 6. Feeling bad about yourself - or that you are a failure or have let yourself or your family down: not at all 7. Trouble concentrating on things, such as reading the newspaper or watching television: not at all 8. Moving or speaking so slowly that other people could have noticed. Or the opposite - being so fidgety or restless that you have been moving around a lot more than usual: not at all 9. Thoughts that you would be better off or of hurting yourself in some way: not at all Total score: 0 Depression Screening Interpretation: Negative Depression Screening Done: Yes 25637 - PHQ-9 Billing: Yes Source: Developed by Drs. Emmett Ma, Abiola Alvarez, Khalif Genao and colleagues, with an educational iftikhar from [employer]. Thrive Questionnaire Date Thrive assessed: 11/22/23 I am a: Patient What is your living situation today?: I have a steady place to live Within the past 12 months, did the food you bought not last and you didn't have the money to get more?: Never true Within the past 12 months, did you worry whether your food would run out before you got money to buy more?: Never true Do you have trouble paying for medicines?: No Do you have trouble getting transportation to medical appointments?: No Do you have trouble paying your heating and electricity bill?: No Do you have trouble taking care of your child, family member or friend?: No Do you have trouble with day-to-day activities such as bathing, preparing meals, shopping, managing finances, etc.?: No Are you currently unemployed and looking for a job?: No Are you interested in more education?: No Please select the resources that you would like help with: None Currently or been in a relationship where the following occur: No concerns reported THRIVE Score: 0 AUDIT C Alcohol Use Questionnaire (AUDIT-C) 2. How many drinks containing alcohol do you have on a typical day when you are drinking?: 3 or 4 3. How often do you have six or more drinks on one occasion?: Never Total Score: 1 Score Reviewed/Action Taken: Yes MIKE-7 AMB Questionnaire MIKE-7 Date MIKE - 7 assessed: 11/22/23 Feeling nervous, anxious, or on edge: 0 = Not at all Not being able to stop or control worryin = Not at all Worrying too much about different things: 0 = Not at all Trouble relaxin = Not at all Being so restless that it is hard to sit still: 0 = Not at all Becoming easily annoyed or irritable: 0 = Not at all Feeling afraid as if something awful might happen: 0 = Not at all Total MIKE-7 score (0-4 normal; 5-9 mild; 10-14 moderate; 15-21 severe): 0 Source: Developed by Drs. Emmett Ma, Abiola Alvarez, Khalif Genao and colleagues, with an educational iftikhar from [employer]. MIKE-7 Assessment Billing MIKE-7 Assessment Tool: MIKE-7 Assessment 91986 Review of Systems Const Details: Constitutional: Denies fever. Skin: Denies rash. Eye: Denies eye pain. ENMT: Denies sore throat and nasal congestion. Respiratory: Denies shortness of breath and cough. Gastrointestinal: Denies nausea, vomiting or abdominal pain. Cardiovascular: Denies chest pain and syncope. Genitourinary: Denies dysuria. Musculoskeletal: Denies back pain and extremity pain. Neurologic: Denies headaches, confusion, and weakness. Psychiatric: Denies suicidal thoughts and substance abuse. Allergy/ Immunologic: Denies impaired immunity. Physical exam (Primary Care) Vital Signs: Last Vital Signs Pulse 75 11/22/23 10:28 Resp 15 11/22/23 10:28 BP 134/78 11/22/23 10:28 Pulse Ox 95 11/22/23 10:28 Oxygen Delivery Method Room Air 11/22/23 10:28 BMI result Body Mass Index 25.6 Tobacco/Smoking Status: Tobacco use Status Tobacco use date assessed 02/14/23 11/22/23 10:29 Patient Tobacco Use Status Former Tobacco user 11/22/23 10:29 e-Cigarette/Vaping Use Never Used 11/22/23 10:29 PHQ-9: PHQ-9 Score PHQ-9: Total score 0 11/22/23 11:18 Depression Screening Interpretation: Negative Thrive Assessment: Date of Thrive Assessment Date Thrive assessed 11/22/23 11/22/23 11:18 Currently or been in a relationship where the following occur: No concerns reported Advance Care Planning discussion: Exists, not on file Date of discussion: 11/22/23 Who was present: self Forms completed: Health Care Proxy and MOLST Time spent: 1-15 minutes, not on file Actual minutes spent: 5 Did not discuss due to Cultural/Spiritual beliefs: Yes Const Other: General: Well developed, well nourished, in no acute distress. Appears stated age. Head: Normocephalic, atraumatic. Eyes: Pupils are equal, round and reactive to light and accommodation. Conjunctivae are clear. Vision grossly normal. Ears: TMs clear AU, EACS WNL Nose: Patent, without discharge. Mouth: There are no ulcers or lesions noted. No inflammation, no post nasal drip, no plaques nor exudates. Neck: Supple, no adenopathy or thyromegaly. Lungs: Clear to auscultation bilaterally. No rales, rhonchi or wheeze noted. Good air flow in all hagen. Heart: Regular rate and rhythm. No murmurs, click, rubs or gallops are noted. Abdomen: Bowel sounds present in all quadrants. The abdomen is soft, nontender, with no masses or organomegaly noted. No hernias are noted. Musculoskeletal: Joints are nontender, without swelling, redness, or effusions. Range of motion is observed to be normal. Pulses: Peripheral pulses are equal and palpable bilaterally. Extremities: No clubbing, cyanosis nor edema is noted. Superficial varicosities noted bilateral ankles, spider veins noted Neurologic: Gait and station normal. Cranial Nerves 2-12 intact. Motor strength grossly symmetrical and intact. No sensory loss. Balance normal. Skin: No ulcers or lesions noted. Turgor is good. Skin color is good. Hair and nails are without abnormalities. On posterior trunk he has 2 patches of dry scabbed skin, similar lesions on bilat elbows Psych: Normal eye contact, affect and mood appropriate, and normal interactions. Patient is alert and appropriate to context. Office Procedures EKG [id number], Complete Flu Questionnaire Does the patient have a severe egg allergy?: No Does the patient have severe life threatening allergies?: No Does the patient have a fever or illness today?: No Has the patient ever had Guillain-[place] Syndrome?: No Has the patient ever had any past reaction to a flu shot?: No Immunizations Fluarix Triv [id number] (PF) 45 mcg (15 mcg x 3)/0.5 mL IM syringe Performing Provider: Ana Parkinson [facility] Performing Location: [facility] Administered by: Brooke Del Rio RN on 11/22/23 10:41 Dose Route Admin Location Dispensed Lot Number Expiration Date [facility] Hook Up 0.5 mL IM Right Deltoid 0.5 mL [id number] 08/10/24 [id number] [employer] VIS Given Date VIS Provided VIS Publication Date 11/22/23 Single Vaccine 20 Eligibility Eligibility Date Funding Source Not [facility] Eligible 11/22/23 Private Coding Level of Care Code Est Pt Level 3 (54534) Est Pt Prev Care 40-64y(53448) Diagnoses Encounter for general adult medical examination with abnormal findings Z00.01 Right bundle branch block I45.10 PAC (premature atrial contraction) I49.1 Flexural eczema L20.82 Eczema type: flexural Diverticulosis K57.90 CPT Codes EKG - CPT: 20250-[id number], Complete ([id number]) Additional Codes MIKE-7 Assessment Billing - MIKE-7 Assessment Tool: MIKE-7 Assessment 85849 ([id number]) Vital Signs *Quality* - Advance Care Planning discussion: Exists, not on file ([id number]) Vital Signs *Quality* - Time spent: 1-15 minutes, not on file ([id number]) Vital Signs *Quality* - Did not discuss due to Cultural/Spiritual beliefs: Yes ([id number]) Assessment & Plan Assessment & Plan (1) Encounter for general adult medical examination with abnormal findings: Code(s): Z00.01 - Encounter for general adult medical examination with abnormal findings (2) Right bundle branch block: Code(s): I45.10 - Unspecified right bundle-branch block Category: Medical Plan: . (3) PAC (premature atrial contraction): Code(s): I49.1 - Atrial premature depolarization Category: Medical Plan: . (4) Eczema: Code(s): L30.9 - Dermatitis, unspecified Category: Medical Qualifiers: Eczema type: flexural Qualified Code(s): L20.82 - Flexural eczema Plan: . (5) Diverticulosis: Code(s): K57.90 - Diverticulosis of intestine, part unspecified, without perforation or abscess without bleeding Category: Medical Plan: . Plan . Orders: Orders Influenza [id number] Immunization Today Z23 - Encounter for immunization AMB EKG-In Office Today I45.10 - Unspecified right bundle-branch block, Z13.6 - Encounter for screening for cardiovascular disorders ECG 12 lead EKG 6 Weeks I45.10 - Unspecified right bundle-branch block, I49.1 - Atrial premature depolarization Referrals Dermatology Referral L30.9 - Dermatitis, unspecified Patient Instructions: Health screenings for men ages 40 to 64 You should visit your health care provider regularly, even if you feel healthy. The purpose of these visits is to: Screen for medical issues Assess your risk for future medical problems Encourage a healthy lifestyle Update vaccinations and other preventive care services Help you get to know your provider in case of an illness Information Even if you feel fine, you should still see your provider for regular checkups. These visits can help you avoid problems in the future. For example, the only way to find out if you have high blood pressure is to have it checked regularly. High blood sugar and high cholesterol level also may not have any symptoms in the early stages. Simple blood tests can check for these conditions. There are specific times when you should see your provider or receive specific health screenings. The [place] Preventive Services Task Force publishes a list of recommended screenings. Below are screening guidelines for men ages 40 to 64. BLOOD PRESSURE SCREENING Have your blood pressure checked at least once every year. Watch for blood pressure screenings in your area. Ask your provider if you can stop in to have your blood pressure checked. Ask your provider if you need your blood pressure checked more often if: You have diabetes, heart disease, kidney problems, or are overweight or have certain other health conditions You have a first-degree relative with high blood pressure You are Black Your blood pressure top number is from 120 to 129 mm Hg, or the bottom number is from 70 to 79 mm Hg If the top number is 130 mm Hg or greater or the bottom number is 80 mm Hg or greater, this is considered stage 1 hypertension. Schedule an appointment with your provider to learn how you can lower your blood pressure. Effects of age on blood pressure CHOLESTEROL SCREENING Cholesterol screening should begin at age 35 for men with no known risk factors for coronary heart disease. Repeat cholesterol screening should take place: Every 5 years for men with normal cholesterol levels More often if changes occur in lifestyle (including weight gain and diet) More often if you have diabetes, heart disease, kidney problems, or certain other conditions COLORECTAL CANCER SCREENING If you are under age 45, talk to your provider about getting screened. You may need to be screened if you have a strong family history of colon cancer or polyps. Screening may also be considered if you have risk factors such as a history of inflammatory bowel disease or polyps. If you are age 45 to 75, you should be screened for colorectal cancer. There are several screening tests available: A stool-based fecal occult blood (gFOBT) or fecal immunochemical test (FIT) every year A stool sDNA test every 1 to 3 years Flexible sigmoidoscopy every 5 years or every 10 years with stool testing FIT done every year CT colonography (virtual colonoscopy) every 5 years Colonoscopy every 10 years You may need a colonoscopy more often if you have risk factors for colorectal cancer, such as: Ulcerative colitis A personal or family history of colorectal cancer A history of growths in your colon called adenomatous polyps DENTAL EXAM Go to the dentist once or twice every year for an exam and cleaning. Your dentist will evaluate if you have a need for more frequent visits. DIABETES SCREENING All adults who do not have risk factors for diabetes should be screened starting at age 35 and repeated every 3 years. If you have other risk factors for diabetes, such as a first degree relative with diabetes, overweight or obesity, high blood pressure, prediabetes, or a history of heart disease, you may be tested more often. If you are overweight and have other risk factors, such as high blood pressure and are planning to become , screening is recommended. EYE EXAM Have an eye exam every 2 to 4 years ages 40 to 54 and every 1 to 3 years ages 55 to 64. Your provider may recommend more frequent eye exams if you have vision problems or glaucoma risk. Have an eye exam that includes an examination of your retina (back of your eye) at least every year if you have diabetes. IMMUNIZATIONS Commonly needed vaccines include: Flu shot: get one every year COVID-19 vaccine: ask your provider what is best for you Tetanus-diphtheria and acellular pertussis (Tdap) vaccine: have as one of your tetanus-diphtheria vaccines if you did not receive it as an adolescent Tetanus-diphtheria: have a booster (or Tdap) every 10 years Varicella vaccine: receive 2 doses if you never had chickenpox or the varicella vaccine and were born in 1979 or after Hepatitis B vaccine: receive 2, 3, or 4 doses, depending on your exact circumstances, if you did not receive these as a child or adolescent, until age 59 Shingles (herpes zoster) vaccine: at or after age 50 Ask your provider if you should receive other immunizations, especially if you have certain medical conditions, such as diabetes or are at increased risk for some diseases such as pneumonia. INFECTIOUS DISEASE SCREENING Screening for hepatitis C: all adults ages 18 to 79 should get a one-time test for hepatitis C. Screening for human immunodeficiency virus (HIV): all people ages 15 to 65 should get a one-time test for HIV. Depending on your lifestyle and medical history, you may need to be screened for infections such as syphilis, chlamydia, and other infections. LUNG CANCER SCREENING You should have an annual screening for lung cancer with low-dose computed tomography (LDCT) if: You are age 50 to 80 years AND You have a 20 pack-year smoking history AND You currently smoke or have quit within the past 15 years OSTEOPOROSIS SCREENING If you are age 50 to 64 and have risk factors for osteoporosis, you should discuss screening with your provider. Risk factors can include long-term steroid use, low body weight, smoking, heavy alcohol use, having a fracture after age 50, or a family history of hip fracture or osteoporosis. Osteoporosis PHYSICAL EXAM All adults should visit their provider from time to time, even if they are healthy. The purpose of these visits is to: Screen for diseases Assess risk of future medical problems Encourage a healthy lifestyle Update vaccinations and other preventive care services Maintain a relationship with a provider in case of an illness Your height, weight, and body mass index (BMI) should be checked at every exam. During your exam, your provider may ask you about: Depression and anxiety Diet and exercise Alcohol and tobacco use Safety, such as use of seat belts and smoke detectors Your medicines and risk for interactions PROSTATE CANCER SCREENING If you're 55 through 69 years old, before having the test, talk to your provider about the pros and cons of having a PSA test. Ask about: Whether screening decreases your chance of dying from prostate cancer. Whether there is any harm from prostate cancer screening, such as side effects from testing or overtreatment of cancer when discovered. Whether you have a higher risk of prostate cancer than others. If you are age 55 or younger, screening is not generally recommended. You should talk with your provider about if you have a higher risk for prostate cancer. Risk factors include: Having a family history of prostate cancer (especially a brother or father) Being If you choose to be tested, the PSA blood test is repeated over time (yearly or less often), though the best frequency is not known. Prostate examinations are no longer routinely done on men with no symptoms. Prostate cancer SKIN EXAM Your provider may check your skin for signs of skin cancer, especially if you're at high risk. People at high risk include those who have had skin cancer before, have close relatives with skin cancer, or have a weakened immune system. TESTICULAR EXAM The [place] Preventive Services Task Force (USPSTF) now recommends against performing testicular self-exams. Doing testicular self-exams has been shown to have little to no benefit.
[2023-11-22 10:28] VITALS: BP 134/78; PULSE 75; RESP 15; O2SAT 95; BMI 25.6
== END 2023-11-22 11:33 | disposition home or self-care (01) ==
PROVIDERS: PCP Family Medicine; Visit Provider Nurse Practitioner Family
DX: Z00.00 Encounter for general adult medical examination without abnormal findings (principal); I45.10 Unspecified right bundle-branch block; I49.1 Atrial premature depolarization; L20.82 Flexural eczema; K57.90 Diverticulosis of intestine, part unspecified, without perforation or abscess without bleeding

== ENCOUNTER → 2023-11-22 10:23 | Outpatient (BNVA) | payer OTHER, SELFPAY | PROVIDERS: PCP Family Medicine; Visit Provider Nurse Practitioner Family | DX: Z00.01 Encounter for general adult medical examination with abnormal findings (principal); I49.1 Atrial premature depolarization; I45.10 Unspecified right bundle-branch block; L20.82 Flexural eczema; K57.90 Diverticulosis of intestine, part unspecified, without perforation or abscess without bleeding; Z23 Encounter for immunization | CPT/HCPCS: 90471; 90656; 93005; 96127 ==

== ENCOUNTER → 2023-12-10 11:34 | Outpatient (REF) | payer OTHER, SELFPAY ==
--- NOTE | 2023-12-10 11:38 | ECG_ITS ---
Test Reason : I45.10 - Unspecified right bundle-branch block Blood Pressure : / mmHG Vent. Rate : 075 BPM Atrial Rate : 075 BPM P-R Int : 156 ms QRS Dur : 126 ms QT Int : 392 ms P-R-T Axes : 052 063 048 degrees QTc Int : 437 ms Sinus rhythm with Premature atrial complexes Right bundle branch block Abnormal ECG No previous ECGs available Referred By: Ana Parkinson Electronically Signed By:ROGER LOPES
== END ==
LOC: HO.CARD 11:34
PROVIDERS: PCP Family Medicine; Visit Provider Nurse Practitioner Family
DX: I45.10 Unspecified right bundle-branch block (principal); I49.1 Atrial premature depolarization
CPT/HCPCS: 93005

== ENCOUNTER → 2023-12-10 11:38 | Outpatient (BNV) | payer OTHER, SELFPAY | PROVIDERS: PCP Family Medicine; Visit Provider Internal Medicine | DX: R94.31 Abnormal electrocardiogram [ECG] [EKG] (principal) | CPT/HCPCS: 93010 ==

== ENCOUNTER 2024-01-13 13:59 | Outpatient (AMB) | payer OTHER, SELFPAY ==
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
[2024-01-13 14:07] VITALS: BP 108/60; PULSE 82; RESP 14; O2SAT 97; BMI 25.6
== END 2024-01-13 14:47 | disposition home or self-care (01) ==
PROVIDERS: PCP Family Medicine; Visit Provider Family Medicine
DX: S02.91XA Unspecified fracture of skull, initial encounter for closed fracture (principal); S02.92XA Unspecified fracture of facial bones, initial encounter for closed fracture; V89.2XXA Person injured in unspecified motor-vehicle accident, traffic, initial encounter; Z04.3 Encounter for examination and observation following other accident

== ENCOUNTER 2024-01-24 15:23 | Outpatient (AMB) | payer OTHER, SELFPAY ==
--- OUTSIDE RECORDS SUMMARY | 2024-01-24 15:25 | XMS_ITS | Continuity of Care Document ---
Author Organization [facility] y Address [address] [place] [address] [address], [address] [place] [address]- Care Team Providers Care Home Energy Consultant Name Role Phone Tylor White MD Primary Care Physician Encounter [facility] [place] Date(s): 01/16/24 - 01/23/24 [facility] [address] [place] [address] Drive [address] [place], [place] [address] Attending Physician: Lakeisha Aquino MD Encounter Type: Office Visit Allergies, Adverse Reactions, Alerts No Known Medication Allergies Immunizations Given and Recorded Vaccine Date Status Refusal Reason tetanus/diphtheria/pertussis, acel(Tdap) 04/10/19 Given Medications docusate sodium 100 mg oral capsule 1 capsule = 100 mg, By Mouth, 2 times a day, # 60 capsule, 0 Refills, Maintenance, 01/02/24 4:20:00PM EST, Capsule, [id number], Partial fill upon patient request if the prescription is for aschedule II opioid drug., 178, cm, 01/01/24 16:45:00 EST, Height, 75, kg, 08/08/22 12:15:00 EDT, Dry Weight Start Date: 01/02/24 Status: Ordered Quantity: 60.0 Unit: capsule Repeat number: 1 Keppra 500 mg oral tablet = 500 mg, By Mouth, 2 times a day, # 11 tablet, 0 Refills, Maintenance, 01/02/24 4:21:00 PM EST, Tablet, [id number], Partial fill upon patient request if the prescription is for a schedule IIopioid drug., 178, cm, 01/01/24 16:45:00 EST, Height, 75, kg, 08/08/22 12:15:00 EDT, Dry Weight Start Date: 01/02/24 Stop Date: 01/07/24 Status: Ordered Quantity: 11.0 Unit: tablet Repeat number: 1 Vital Signs Most recent to oldest [Reference Range]: 1 2 Height 178 cm (01/16/24 8:43 AM) 178 cm (01/16/24 8:38 AM) Weight 79.5 kg (01/16/24 8:43 AM) Body Mass Index [18.5-24.99 kg/m2] 25.09 kg/m2 *H* (01/16/24 8:43 AM) Social History Social History Type Response Smoking Status Never (less than 100 in lifetime) entered on: 04/10/19 Sex Sex Representation Male (finding) Patient Care team information Care Team Personnel Name: Ravindra Torres RN Position: [facility] RN Member Role: Primary Care Nurse Name: Christopher JARAMILLO , Tylor Umanzor Position: [facility] Outreach Member Role: PCP Address: [address] [place] [address] Telecom: Name: Lyssa Willard RN Position: [facility] RN Member Role: Primary Care Nurse Care Team Related Persons Name: JOSH LAMB Insurance Providers Guarantor name: ARNOLDO Health Plan Information #: 2 Payer: [employer] PPO MVP Member Number: [id number] Policy Number: NA Group Number: [id number] Health Plan Information #: 1 Payer: [employer] HMO POS Member Number: [id number] Policy Number: NA Group Number: [id number] Health Plan Information #: 3 Payer: [employer] Member Number: [id number] Policy Number: NA Group Number: [id number] Health Plan Information #: 4 Payer: [employer] Member Number: NA Policy Number: NA Group Number: NA
--- OUTSIDE RECORDS SUMMARY | 2024-01-24 15:25 | XMS_ITS | Continuity of Care Document ---
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 Name Role Phone Not on Staff, PCP Primary Care Physician Unavail able [place] [facility] [place] - 01/02/[address] [address]- Encounter Diagnosis Periorbital edema(Final) - 12/31/23 Discharge Disposition: A-D/C Home Attending Physician: Pierre Sánchez MD Admitting Physician: Pierre Sánchez MD Referring Physician: Not on Staff, Referring MD Encounter Type: Disch IP Allergies, Adverse Reactions, Alerts No Known Medication Allergies Immunizations Given and Recorded Vaccine Date Status Refusal Reason tetanus/diphtheria/pertussis, acel(Tdap) 04/10/19 Given Medications acetaminophen 325 mg oral tablet 975 mg, Tablet, By Mouth, 01/02/24 2:00:00 PM EST Start Date: 01/02/24 Stop Date: 01/02/24 Status: Completed Repeat number: 1 docusate sodium 100 mg oral capsule 1 [...] Refills, Maintenance, 01/02/24 4:21:00 PM EST, Tablet, [facility]/pharmacy #[id number], Partial fill upon patient request if the prescription is for a schedule IIopioid drug., 178, cm, 01/01/24 16:45:00 EST, Height, 75, kg, 08/08/22 12:15:00 EDT, Dry Weight Start Date: 01/02/24 Stop Date: 01/07/24 Status: Ordered Quantity: 11.0 Unit: tablet Repeat number: 1 Results Radiology Reports * Exam Date Time Procedure Performing Provider Status 01/01/24 5:[address] Head/Brain W/O Contrast Stupak , O leg; Auth (Verified) Notes: (CT Head/Brain W/O Contrast) Reason For Exam: Head trauma, mod-severe;Other: RESULT: CT Head/Brain W/O Contrast CT Head/Brain W/O Contrast INDICATION: Reason: Other:; Head trauma, mod-severe; Clinical Question(s): Progression Regression; subarachnoid hemorrhage versus intraparenchymal contusion; Order Comment: TECHNIQUE: Noncontrast head CT using axial technique and reconstructed in axial and coronal planes.Iterative reconstruction techniques are used to optimize dose and image quality. CTDIvol Head: 48.30 mGy, DLP Head: 773 mGy*cm. COMPARISON: CT head from 12/31/2023 FINDINGS: Alarm Mechanic view findings, lines and tubes: None. BRAIN AND EXTRA-AXIAL SPACES: Similar small volume right anterior pneumocephalus with new tiny locules of pneumocephalus along the left frontal region. Trace gas along the right falx at the vertex (202:111) is new. Unchanged 10 mm focus of parenchymal hematoma in the left posterior temporal lobe with some slight increased vasogenic edema (202:35). Some adjacent hyperattenuation along the posterior floor of the left middle cranial fossa (202:29) is unchanged. Unchanged 6 mm round focus of hyperattenuation within the right frontal region, favored to represent a tiny focus of intraparenchymal hematoma over subarachnoid hemorrhage. Decreased conspicuity of curvilinear hyperdensity within the sulci of the left posterior temporal lobe previously thought to represent improving subarachnoid hemorrhage. Decreasing subdural hyperdensity along the left frontal lobe. Stable ventricular caliber. No midline shift. CALVARIUM, SKULL BASE, AND SOFT TISSUES: No fractures or suspicious bony lesions. Redemonstration of right frontal bone fracture with fractures of the right orbit and maxillary sinus. Blood products in the right maxillary sinus. Extensive right frontal scalp swelling. IMPRESSION: Compared to 12/31/2023: Similar small volume pneumocephalus along the right frontal lobe. Tiny locules of pneumocephalus along the left anterior frontal lobe and right superior falx are new. Unchanged 10 mm focus of intraparenchymal hematoma in the left posterior temporal lobe and unchanged 6 mm focus of probable intraparenchymal hematoma in the superficial right frontal lobe. No worsening mass effect. Slightly decreased conspicuity of hyperintensity within the sulci of the left temporal lobe suggestive of improving subarachnoid hemorrhage. Decreased conspicuity of left frontal subdural hyperdense collection. No new intracranial hemorrhage or worsening mass effect. Right frontal bone fracture with facial fractures described previously. WSN: [id number] Ordering Physician: Ed Rose Dictated By: Bruno Botello MD Dictated Date/Time: 01/01/24 8:59 am Reviewed By: Bruno Botello MD Signed By: Bruno Botello MD Signed Date/Time: 01/01/24 8:59 am Transcribed By: CARY Transcribed Date/Time: 01/01/24 8:48 am * Exam Date Time Procedure Performing Provider Status 12/31/23 4:[address] Head/Brain W/O Contrast Radha , N icole; Auth (Verified) Notes: (CT Head/Brain W/O Contrast) Reason For Exam: Head trauma, mod-severe;Other: RESULT: CT Head/Brain W/O Contrast CT Head/Brain W/O Contrast INDICATION: Hx of Present Illness: see trauma flow sheet; Reason: Other:; Head trauma, mod-severe; Clinical Question(s): Progression Regression; subarachnoid hemorrhage versus intraparenchymal contusion; Order Comment: TECHNIQUE: Noncontrast head CT using axial technique and reconstructed in axial and coronal planes.Iterative reconstruction techniques are used to optimize dose and image quality. CTDIvol Head: 46.55 mGy, DLP Head: 838 mGy*cm. COMPARISON: CT head from 12/31/2023 at 09:34 FINDINGS: Alarm Mechanic view findings, lines and tubes: None. BRAIN AND EXTRA-AXIAL SPACES: New small volume pneumocephalus in the anterior right frontal region. New 10 mm focus of intraparenchymal hemorrhage within the left temporal lobe (302:43). Unchanged 3 mm hypodense focus within the right frontal lobe either representing parenchymal contusion or trace subarachnoid hematoma (302:103).. Increasing faint subarachnoid hemorrhage within the left posterior temporal region (302:57). New 3 mm subdural hemorrhage along the anterior left frontal lobe (302:73). Trace blood products from the floor of the left posterior medial cranial fossa appear unchanged (302:37). No midline shift. Stable ventricular caliber. CALVARIUM, SKULL BASE, AND SOFT TISSUES: Nondisplaced fracture of the right frontal bone with extension into the lateral orbit. Fracture through the right inferior orbital wall. Minimally displaced fracture of the left posterior and medial orbital wall (303:50). Fractures of the medial lateral persaud of the right maxillary sinus. Blood product in the right maxillary sinus. Partial opacification of the ethmoid air cells. Trace gas in the right extraconal orbit. Right frontal scalp hematoma. IMPRESSION: Compared to 12/31/2023 at 09:34, new pneumocephalus in the right frontal region. New 10 mm focus of intraparenchymal hemorrhage in the left temporal lobe. New trace subarachnoid hemorrhage in the left posterior temporal region. New 3 mm focus of subdural hemorrhage in the left frontal region. Stable 3 mm hyperdense intraparenchymal or subarachnoid focus in the right frontal lobe. Right frontal bone fracture. Right orbital and maxillary sinus fractures. Please refer to prior facial CT. Right scalp hematoma. Findings were discussed with Dr. Carrasco at 16:34 on 12/21/2023. WSN: [id number] Ordering Physician: Valentine Carrasco Dictated By: Bruno Botello MD Dictated Date/Time: 12/31/23 4:57 pm Reviewed By: Bruno Botello MD Signed By: Bruno Botello MD Signed Date/Time: 12/31/23 4:57 pm Transcribed By: CARY Transcribed Date/Time: 12/31/23 4:41 pm * Exam Date Time Procedure Performing Provider Status 12/31/23 10:12 AM Chest Portable Jus , Bella; Auth (Verified) Notes: (Chest Portable) Reason For Exam: pulmonary contusion, pneumothorax, fracture;Other: RESULT: Chest Portable Chest Portable Reason: pulmonary contusion, pneumothorax, fracture; Clinical Question(s): Trauma COMPARISON: None. FINDINGS: LINES AND TUBES: Cervical collar in place. LUNGS AND PLEURA: Clear lungs. Normal pulmonary vascularity. No pleural effusion. No pneumothorax. HEART, MEDIASTINUM AND VERITO: Heart is normal in size. Normal mediastinal and hilar contour. BONES AND SOFT TISSUES: No acute abnormality. IMPRESSION: No acute abnormality. I have personally reviewed the images and I agree with this report. WSN: [id number] Ordering Physician: Valentine Carrasco Dictated By: Riky Watts MD Dictated Date/Time: 12/31/23 11:28 a Reviewed By: Camilo Vyas MD, V Signed By: Camilo Vyas MD, V Signed Date/Time: 12/31/23 11:33 am Transcribed By: CSB Transcribed Date/Time: 12/31/23 10:24 am * Exam Date Time Procedure Performing Provider Status 12/31/23 9:59 AM Wrist Comp Min 3 Views Left Yuliya Mena; Auth (Verified) Notes: (Wrist Comp Min 3 Views Left) Reason For Exam: with Pain;Trauma RESULT: Wrist Comp Min 3 Views Left Wrist Comp 4 Views Left Reason: Trauma; with Pain; Clinical Question(s): Fracture COMPARISON: None. FINDINGS: No fracture or dislocation. Normal carpal configuration. Intact radial and ulnar styloid processes. No arthritic change. Normal soft tissues. IMPRESSION: No acute fracture or dislocation. I have personally reviewed the images and I agree with this report. WSN: [id number] Ordering Physician: Valentine Carrasco Dictated By: Riky Watts MD Dictated Date/Time: 12/31/23 1:28 pm Reviewed By: Camilo Vyas MD, V Signed By: Camilo Vyas MD, V Signed Date/Time: 12/31/23 1:33 pm Transcribed By: CSSparkle Transcribed Date/Time: 12/31/23 10:22 am * Exam Date Time Procedure Performing Provider Status 12/31/23 9:[address] Abd/Pelvis W/ IV Contrast Only Rita Yoo; Auth (Verified) Notes: (CT Abd/Pelvis W/ IV Contrast Only) Reason For Exam: Abd trauma, blunt;Other: RESULT: CT Abd/Pelvis W/ IV Contrast Only CT Chest W/ Contrast, CT Abd/Pelvis W/ IV Contrast Only INDICATION: Reason: Other:; Chest trauma, blunt; Clinical Question(s): Other:; Aortic hilar injury TECHNIQUE: Helical CT scan of the chest, abdomen, and pelvis with IV contrast, formatted in 3 planes. 100 cc of Omnipaque 300 was administered intravenously. This study was performed without oral contrast. Weight-based protocol was performed using automatic exposure control. CTDIvol Body: 8.90 mGy, DLP Body: 639 mGy*cm. COMPARISON: None. FINDINGS: Alarm Mechanic view findings, lines and tubes: None. Trachea and airways: Patent without evidence of tracheal or endobronchial lesion. Lungs and pleura: Clear lungs. No effusion or pneumothorax. Mediastinum and verito: No mass or hematoma. No mediastinal or hilar lymphadenopathy. No esophageal abnormality. Heart: Heart is normal in size. No pericardial effusion. Aorta: No aortic aneurysm. Pulmonary arteries: Normal caliber. No evidence of pulmonary embolism on this study performed without angiographic technique. Chest wall soft tissues: No acute abnormality. Diaphragm: Intact. Liver: Mildly nodular contour. Gallbladder: No CT evidence of gallbladder pathology. Bile ducts: No biliary ductal dilation. Spleen: Normal in size. Pancreas: No suspicious lesion or ductal dilatation. Adrenal glands: No nodule. Kidneys and ureters: Bilateral peripelvic cysts. No hydronephrosis. Small hypodensities that are too small to characterize are noted, requiring no dedicated follow up. There are two 1 to 2 mm calculiin the lower pole left kidney. Bladder: No wall thickening or surrounding stranding. Reproductive organs: Unremarkable. Stomach, small bowel, and large bowel: Scattered colonic diverticula without diverticulitis. No obstruction or inflammatory change. Appendix: No evidence of acute appendicitis. Peritoneum and retroperitoneum: No ascites or pneumoperitoneum. No omental or mesenteric lesions. Lymph nodes: No enlarged lymph nodes. Blood vessels: No vascular calcifications or aneurysm. No evidence of venous thrombosis. Abdominal and pelvic wall soft tissues: Small fat-containing umbilical hernia. Small fat-containingright inguinal hernia. Bones: No acute abnormality. IMPRESSION: No CT evidence of traumatic injury. Chronic findings as described above. WSN: [id number] Ordering Physician: Valentine Carrasco Dictated By: Reynaldo Rossi MD Dictated Date/Time: 12/31/23 10:26 a Reviewed By: Reynaldo Rossi MD Signed By: Reynaldo Rossi MD Signed Date/Time: 12/31/23 10:26 am Transcribed By: CARY Transcribed Date/Time: 12/31/23 10:18 am * Exam Date Time Procedure Performing Provider Status 12/31/23 9:[address] Chest W/ Contrast Rita Yoo; Auth (Verified) Notes: (CT Chest W/ Contrast) Reason For Exam: Chest trauma, blunt;Other: RESULT: CT Chest W/ Contrast CT Chest W/ Contrast, CT Abd/Pelvis W/ IV Contrast Only INDICATION: Reason: Other:; Chest trauma, blunt; Clinical Question(s): Other:; Aortic hilar injury TECHNIQUE: Helical CT scan of the chest, abdomen, and pelvis with IV contrast, formatted in 3 planes. 100 cc of Omnipaque 300 was administered intravenously. This study was performed without oral contrast. Weight-based protocol was performed using automatic exposure control. CTDIvol Body: 8.90 mGy, DLP Body: 639 mGy*cm. COMPARISON: None. FINDINGS: Alarm Mechanic view findings, lines and tubes: None. Trachea and airways: Patent without evidence of tracheal or endobronchial lesion. Lungs and pleura: Clear lungs. No effusion or pneumothorax. Mediastinum and verito: No mass or hematoma. No mediastinal or hilar lymphadenopathy. No esophageal abnormality. Heart: Heart is normal in size. No pericardial effusion. Aorta: No aortic aneurysm. Pulmonary arteries: Normal caliber. No evidence of pulmonary embolism on this study performed without angiographic technique. Chest wall soft tissues: No acute abnormality. Diaphragm: Intact. Liver: Mildly nodular contour. Gallbladder: No CT evidence of gallbladder pathology. Bile ducts: No biliary ductal dilation. Spleen: Normal in size. Pancreas: No suspicious lesion or ductal dilatation. Adrenal glands: No nodule. Kidneys and ureters: Bilateral peripelvic cysts. No hydronephrosis. Small hypodensities that are too small to characterize are noted, requiring no dedicated follow up. There are two 1 to 2 mm calculiin the lower pole left kidney. Bladder: No wall thickening or surrounding stranding. Reproductive organs: Unremarkable. Stomach, small bowel, and large bowel: Scattered colonic diverticula without diverticulitis. No obstruction or inflammatory change. Appendix: No evidence of acute appendicitis. Peritoneum and retroperitoneum: No ascites or pneumoperitoneum. No omental or mesenteric lesions. Lymph nodes: No enlarged lymph nodes. Blood vessels: No vascular calcifications or aneurysm. No evidence of venous thrombosis. Abdominal and pelvic wall soft tissues: Small fat-containing umbilical hernia. Small fat-containingright inguinal hernia. Bones: No acute abnormality. IMPRESSION: No CT evidence of traumatic injury. Chronic findings as described above. WSN: [id number] Ordering Physician: Valentine Carrasco Dictated By: Reynaldo Rossi MD Dictated Date/Time: 12/31/23 10:26 a Reviewed By: Reynaldo Rossi MD Signed By: Reynaldo Rossi MD Signed Date/Time: 12/31/23 10:26 am Transcribed By: CARY Transcribed Date/Time: 12/31/23 10:18 am * Exam Date Time Procedure Performing Provider Status 12/31/23 9:[address] Cervical Spine W/ O Contrast Rita Yoo (Verified) Notes: (CT Cervical Spine W/O Contrast) Reason For Exam: Neck trauma, dangerous injury mechanism;Other: RESULT: CT Cervical Spine W/O Contrast CT Head/Brain W/O Contrast, CT Maxilloface W/O Contrast, CT Cervical Spine W/O Contrast INDICATION: Reason: Other:; Head trauma, mod-severe; Clinical Question(s): Hematoma TECHNIQUE: Noncontrast head CT using axial technique was reconstructed in axial and coronal planes.Noncontrast spiral CT through the facial bones and cervical spine was formatted in 3 planes. Automatic tube modulation was used for the cervical spine and iterative dose reconstruction was used for the head, face, and cervical spine to optimize scan parameters and image quality. CTDIvol Body: 14.30 mGy, DLP Body: 439 mGy*cm. CTDIvol Head: 39.40 mGy, DLP Head: 671 mGy*cm. COMPARISON: None. FINDINGS: Alarm Mechanic View Findings, Lines and Tubes: None. BRAIN AND EXTRA-AXIAL SPACES: Tiny focus of subarachnoid hemorrhage versus intraparenchymal contusion in the right frontal lobe on series 202 image 87. Ventricles, sulci, and basilar cisterns are normal. No white matter lesions. No subarachnoid hemorrhage. No subdural or epidural collection. CALVARIUM, SKULL BASE, AND SOFT TISSUES: Nondisplaced fracture of the right frontal bone on series 301 image 30 extending into the right superior orbit. The paranasal sinuses and mastoid air cells are clear. Visualized orbits and globes are intact. Moderate-sized right frontal subgaleal hematoma measuring up to 1.3 cm in thickness but MAXILLOFACIAL: Nondisplaced fracture through the right superior and lateral orbital wall. Nondisplaced fracture through the right inferior orbital wall involving the infraorbital foramen. Nondisplaced fracture involving the lateral wall of the right maxillary sinus. Nondisplaced fracture involving the medial wallof the right maxillary sinus anteriorly, associated hemosinus. CERVICAL SPINE: No fracture. No acute osseous abnormalities. Normal alignment. No locked or perched facet. Intervertebral disc spaces and vertebral body heightsare preserved. OTHER BONES: No acute abnormality. CERVICAL SOFT TISSUES AND LUNG APICES: Normal soft tissues. Visualized lung apices are clear. IMPRESSION: 1. Tiny focus of subarachnoid hemorrhage versus intraparenchymal contusion involving the right frontal lobe. 2. Nondisplaced fracture through the right frontal bone with extension into the right superior orbit. 3. Nondisplaced fracture through the right lateral orbital wall and right inferior orbital wall involving the right infraorbital foramen. 4. Nondisplaced fracture involving the medial and lateral persaud of the maxillary sinus with associated hemosinus. Findings relayed through secure messaging to Valentine Carrasco DO at 12/31/2023 on 10:17 AM. WSN: [id number] Ordering Physician: Valentine Carrasco Dictated By: Reynaldo Rossi MD Dictated Date/Time: 12/31/23 10:26 a Reviewed By: Reynaldo Rossi MD Signed By: Reynaldo Rossi MD Signed Date/Time: 12/31/23 10:26 am Transcribed By: CARY Transcribed Date/Time: 12/31/23 10:18 am * Exam Date Time Procedure Performing Provider Status 12/31/23 9:[address] Maxilloface W/O Contrast Rita Brice; Auth (Verified) Notes: (CT Maxilloface W/O Contrast) Reason For Exam: Facial trauma, blunt;Other: RESULT: CT Maxilloface W/O Contrast CT Head/Brain W/O Contrast, CT Maxilloface W/O Contrast, CT Cervical Spine W/O Contrast INDICATION: Reason: Other:; Head trauma, mod-severe; Clinical Question(s): Hematoma TECHNIQUE: Noncontrast head CT using axial technique was reconstructed in axial and coronal planes.Noncontrast spiral CT through the facial bones and cervical spine was formatted in 3 planes. Automatic tube modulation was used for the cervical spine and iterative dose reconstruction was used for the head, face, and cervical spine to optimize scan parameters and image quality. CTDIvol Body: 14.30 mGy, DLP Body: 439 mGy*cm. CTDIvol Head: 39.40 mGy, DLP Head: 671 mGy*cm. COMPARISON: None. FINDINGS: Alarm Mechanic View Findings, Lines and Tubes: None. BRAIN AND EXTRA-AXIAL SPACES: Tiny focus of subarachnoid hemorrhage versus intraparenchymal contusion in the right frontal lobe on series 202 image 87. Ventricles, sulci, and basilar cisterns are normal. No white matter lesions. No subarachnoid hemorrhage. No subdural or epidural collection. CALVARIUM, SKULL BASE, AND SOFT TISSUES: Nondisplaced fracture of the right frontal bone on series 301 image 30 extending into the right superior orbit. The paranasal sinuses and mastoid air cells are clear. Visualized orbits and globes are intact. Moderate-sized right frontal subgaleal hematoma measuring up to 1.3 cm in thickness but MAXILLOFACIAL: Nondisplaced fracture through the right superior and lateral orbital wall. Nondisplaced fracture through the right inferior orbital wall involving the infraorbital foramen. Nondisplaced fracture involving the lateral wall of the right maxillary sinus. Nondisplaced fracture involving the medial wallof the right maxillary sinus anteriorly, associated hemosinus. CERVICAL SPINE: No fracture. No acute osseous abnormalities. Normal alignment. No locked or perched facet. Intervertebral disc spaces and vertebral body heightsare preserved. OTHER BONES: No acute abnormality. CERVICAL SOFT TISSUES AND LUNG APICES: Normal soft tissues. Visualized lung apices are clear. IMPRESSION: 1. Tiny focus of subarachnoid hemorrhage versus intraparenchymal contusion involving the right frontal lobe. 2. Nondisplaced fracture through the right frontal bone with extension into the right superior orbit. 3. Nondisplaced fracture through the right lateral orbital wall and right inferior orbital wall involving the right infraorbital foramen. 4. Nondisplaced fracture involving the medial and lateral persaud of the maxillary sinus with associated hemosinus. Findings relayed through secure messaging to Valentine Carrasco DO at 12/31/2023 on 10:17 AM. WSN: [id number] Ordering Physician: Valentine Carrasco Dictated By: Reynaldo Rossi MD Dictated Date/Time: 12/31/23 10:26 a Reviewed By: Reynaldo Rossi MD Signed By: Reynaldo Rossi MD Signed Date/Time: 12/31/23 10:26 am Transcribed By: CARY Transcribed Date/Time: 12/31/23 10:18 am * Exam Date Time Procedure Performing Provider Status 12/31/23 9:[address] Head/Brain W/O Contrast Rita Leong; Ruth (Verified) Notes: (CT Head/Brain W/O Contrast) Reason For Exam: Head trauma, mod-severe;Other: RESULT: CT Head/Brain W/O Contrast CT Head/Brain W/O Contrast, CT Maxilloface W/O Contrast, CT Cervical Spine W/O Contrast INDICATION: Reason: Other:; Head trauma, mod-severe; Clinical Question(s): Hematoma TECHNIQUE: Noncontrast head CT using axial technique was reconstructed in axial and coronal planes.Noncontrast spiral CT through the facial bones and cervical spine was formatted in 3 planes. Automatic tube modulation was used for the cervical spine and iterative dose reconstruction was used for the head, face, and cervical spine to optimize scan parameters and image quality. CTDIvol Body: 14.30 mGy, DLP Body: 439 mGy*cm. CTDIvol Head: 39.40 mGy, DLP Head: 671 mGy*cm. COMPARISON: None. FINDINGS: Alarm Mechanic View Findings, Lines and Tubes: None. BRAIN AND EXTRA-AXIAL SPACES: Tiny focus of subarachnoid hemorrhage versus intraparenchymal contusion in the right frontal lobe on series 202 image 87. Ventricles, sulci, and basilar cisterns are normal. No white matter lesions. No subarachnoid hemorrhage. No subdural or epidural collection. CALVARIUM, SKULL BASE, AND SOFT TISSUES: Nondisplaced fracture of the right frontal bone on series 301 image 30 extending into the right superior orbit. The paranasal sinuses and mastoid air cells are clear. Visualized orbits and globes are intact. Moderate-sized right frontal subgaleal hematoma measuring up to 1.3 cm in thickness but MAXILLOFACIAL: Nondisplaced fracture through the right superior and lateral orbital wall. Nondisplaced fracture through the right inferior orbital wall involving the infraorbital foramen. Nondisplaced fracture involving the lateral wall of the right maxillary sinus. Nondisplaced fracture involving the medial wallof the right maxillary sinus anteriorly, associated hemosinus. CERVICAL SPINE: No fracture. No acute osseous abnormalities. Normal alignment. No locked or perched facet. Intervertebral disc spaces and vertebral body heightsare preserved. OTHER BONES: No acute abnormality. CERVICAL SOFT TISSUES AND LUNG APICES: Normal soft tissues. Visualized lung apices are clear. IMPRESSION: 1. Tiny focus of subarachnoid hemorrhage versus intraparenchymal contusion involving the right frontal lobe. 2. Nondisplaced fracture through the right frontal bone with extension into the right superior orbit. 3. Nondisplaced fracture through the right lateral orbital wall and right inferior orbital wall involving the right infraorbital foramen. 4. Nondisplaced fracture involving the medial and lateral persaud of the maxillary sinus with associated hemosinus. Findings relayed through secure messaging to Valentine Carrasco DO at 12/31/2023 on 10:17 AM. WSN: [id number] Ordering Physician: Valentine Carrasco Dictated By: Reynaldo Rossi MD Dictated Date/Time: 12/31/23 10:26 a Reviewed By: Reynaldo Rossi MD Signed By: Reynaldo Rossi MD Signed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
--- OUTSIDE RECORDS SUMMARY | 2024-01-24 15:25 | XMS_ITS | Continuity of Care Document ---
Author Organization [facility] Address [address] [place] [address] [address] [place] [address]- Care Team Providers Care Private Duty Nurse Name Role Phone Christopher JARAMILLO, Tylor Umanzor Primary Care Physician Encounter [facility] Date(s): 01/16/24 - 01/23/24 [facility] [address] [place] [id number] Attending Physician: David JARAMILLO, Shmuel Becerril Referring Physician: Not on Staff, Referring MD Encounter Type: Office Visit Allergies, Adverse [...] Most recent to oldest [Reference Range]: 1 Height 178 cm (01/16/24 2:44 PM) Weight 75 kg (01/16/24 2:44 PM) Body Mass Index [18.5-24.99 kg/m2] 23.67 kg/m2 (01/16/24 2:44 PM) Social History Social History Type Response Smoking Status Never (less than 100 in lifetime) entered on: 04/10/19 Sex Sex Representation Male (finding) Patient Care team information Care Team Personnel Name: Ravindra Torres RN Position: S RN Member Role: Primary Care Nurse Name: Tylor White MD Position: [facility] Outreach Member Role: PCP Address: [address] [place] [address] Telecom: Name: Lyssa Willard RN Position: [facility] RN Member Role: Primary Care Nurse Care Team Related Persons Name: JOSH LAMB Insurance Providers Guarantor name: ARNOLDO Health Plan Information #: 1 Payer: [employer] HMO POS Member Number: [id number] Policy Number: NA Group Number: [id number] Health Plan Information #: 3 Payer: [employer] Member Number: [id number] Policy Number: NA Group Number: [id number] Health Plan Information #: 2 Payer: CIGNA PPO MVP Member Number: [id number] Policy Number: NA Group Number: [id number] Health Plan Information #: 4 Payer: UNKOWN Member Number: NA Policy Number: NA Group Number: NA
--- NOTE | 2024-01-24 16:18 | A.OFFPC_ITS ---
Intake Visit Reasons: 6 weeks FU EKG tele or in person Allergies No Known Allergies Allergy (Verified 01/24/24 16:22) Medication List - Last Reconciled 01/24/24 by ANGELINA Walters betamethasone valerate 0.1% 1 appl topical DAILY PRN 14 days Tobacco use date assessed: 02/14/23 Dental Screening Dental Screen Date: 09/17/22 HPI HPI Comments History of Present Illness Details History of Present Illness The patient is a 63-year-old male presenting with the reason for visit as a follow-up to review the findings of a repeat EKG. Initially, there was an incidental finding on a previous EKG, although the patient was asymptomatic with no cardiac symptoms such as palpitations, chest pain, or shortness of breath. The findings on repeat EKG: sinus rhythm with a premature atrial complex and right bundle branch block, which were also present in an earlier EKG performed on November 21. The patient reports these findings have not changed, with no increase in severity. Historical symptoms have been assessed, and it is noted that the patient's sister has experienced a similar condition most of her life. Previous observations at the hospital indicated these EKG findings should be considered the patient's normal baseline. No interventions have been initiated to date as symptoms have been absent. Review of Systems - Cardiovascular: Denies any current car diac symptoms such as palpitations or weakness. Plan - Continue monitoring EKG changes annual ly, provided no new symptoms develop. - The option remains for cardiology refe rral if patient experiences any new symptoms such as palpitations or weakness. - Patient is advised to report any emerg ent cardiac symptoms promptly for reevaluation and possible early EKG. Patient was informed and verbally consented to the use of an ambient scribe for clinic note documentation during this visit. Discussion Notes I discussed with the patient that the current EKG analysis indicates a sinus rhythm with premature atrial complex and right bundle branch block, which has remained consistent with previous tests. Given the absence of symptoms, no immediate intervention is necessary, and the findings are considered to be the patient's baseline norm. The patient has the option of undergoing annual EKG tests to monitor for any future changes or to consult with cardiology if symptoms arise. I emphasized the importance of monitoring for any cardiac symptoms, such as palpitations or feeling weak, and instructed the patient to seek timely medical attention if such symptoms occur. We also discussed the potential changes in healthcare coverage related to [facility] and [facility] enter and the patient's options regarding medical records transfer should the need arise. Patient Instructions - Proceed with annual EKGs to monitor he art rhythm changes. - Monitor for symptoms like palpitations or increased weakness and report them immediately if they occur. - Contact health information systems at [facility] for medical records transfer in case of insurance changes. - Remain informed about healthcare cover age changes and consider alternative options if necessary. - Follow up if experiencing any new heal thcare concerns or symptoms. This note is constructed using voice recognition software. While every effort has been made to ensure accuracy in agile scrum master, still errors may have been included Sometimes, these errors may affect the content or meaning of the given sentence . Total time spent caring for the patient today was 20 minutes. This includes time spent before the visit reviewing the chart, time spent during the visit, and time spent after the visit on documentation [facility] Medical History (Updated 01/13/24 @ 14:27 by Bradford Rain) Hearing loss RBBB (right bundle branch block) Hernia Surgical History History of hernia surgery Family History Other Mental health disorder Substance use disorder Social History Housing: House Alcohol intake: current Alcohol intake frequency: 3 or more drinks per day Alcohol type: beer Patient Tobacco Use Status: Former Tobacco user e-Cigarette/Vaping Use: Never Used Second Hand Smoke Exposure: No service: No Current occupational status: employed Current occupational exposures/hazards: No Cognitive needs: No Hearing needs: No Vision needs: Yes (glasses) Questionnaire Thrive Questionnaire Date Thrive assessed: 01/13/24 I am a: Patient What is your living situation today?: I have a steady place to live Within the past 12 months, did the food you bought not last and you didn't have the money to get more?: Never true Within the past 12 months, did you worry whether your food would run out before you got money to buy more?: Never true Do you have trouble paying for medicines?: No Do you have trouble getting transportation to medical appointments?: No Do you have trouble paying your heating and electricity bill?: No Do you have trouble taking care of your child, family member or friend?: No Do you have trouble with day-to-day activities such as bathing, preparing meals, shopping, managing finances, etc.?: No Are you currently unemployed and looking for a job?: No Are you interested in more education?: No Please select the resources that you would like help with: None Currently or been in a relationship where the following occur: No concerns reported THRIVE Score: 0 MIKE-7 AMB Questionnaire MIKE-7 Date MIKE - 7 assessed: 11/22/23 Source: Developed by Drs. Emmett Ma, Abiola Alvarez, Khalif Genao and colleagues, with an educational iftikhar from [employer]. Physical exam (Primary Care) Tobacco/Smoking Status: Tobacco use Status Tobacco use date assessed 02/14/23 01/13/24 14:11 Patient Tobacco Use Status Former Tobacco user 01/13/24 14:11 e-Cigarette/Vaping Use Never Used 01/13/24 14:11 Thrive Assessment: Date of Thrive Assessment Date Thrive assessed 01/13/24 01/21/24 13:57 Currently or been in a relationship where the following occur: No concerns reported Telehealth Telehealth Telehealth Platform: [facility] Location of provider rendering services: practice address Location of patient: address on file Patient Identification confirmed using: Name, : Yes Telehealth method: voice only Patient verbally consented to treatment: Yes Patient verbally consented to billing insurance company: Yes Patient informed of any privacy concerns related to visit: Yes Minutes spent on Phone/Video with Pt.: 7 Coding Level of Care Code Tele Est Pt Level 3 (44286) Complex EM visit Add On G2211 Diagnoses PAC (premature atrial contraction) I49.1 Right bundle branch block I45.10 Assessment & Plan Assessment & Plan (1) PAC (premature atrial contraction): Code(s): I49.1 - Atrial premature depolarization Category: Medical (2) Right bundle branch block: Code(s): I45.10 - Unspecified right bundle-branch block Category: Medical Plan .
== END 2024-01-24 16:38 | disposition home or self-care (01) ==
LOC: HO.HMCFM 15:23
PROVIDERS: PCP Family Medicine; Visit Provider Nurse Practitioner Family
DX: I49.1 Atrial premature depolarization (principal); I45.10 Unspecified right bundle-branch block

== ENCOUNTER 2024-01-28 10:55 | Outpatient (AMB) | payer OTHER, SELFPAY ==
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
[2024-01-28 12:33] VITALS: BP 110/66; PULSE 80; RESP 14; O2SAT 95; BMI 25.4
== END 2024-01-28 13:24 | disposition home or self-care (01) ==
PROVIDERS: PCP Family Medicine; Visit Provider Family Medicine
DX: S06.0XAA Concussion with loss of consciousness status unknown, initial encounter (principal); S02.91XA Unspecified fracture of skull, initial encounter for closed fracture; S02.92XA Unspecified fracture of facial bones, initial encounter for closed fracture

== ENCOUNTER → 2024-01-28 10:55 | Outpatient (BNVA) | payer OTHER, SELFPAY | PROVIDERS: PCP Family Medicine; Visit Provider Family Medicine ==

== ENCOUNTER 2024-11-24 08:53 | Outpatient (AMB) | payer OTHER, SELFPAY ==
--- NOTE | 2024-11-24 08:57 | A.OFFPC_ITS ---
Vital Signs 11/24/24 09:01 Height 5 ft 10 in Weight 177 lb 4 oz BMI 25.4 BP 118/78 Blood Pressure Location Lt brachial Position Sitting Respiration 14 Pulse 95 Pulse Source Pulse Oximeter Temp 97.7 F Temp Source Temporal Artery Scan Pulse Oximetry (%) 100 Oxygen Delivery Method Room Air Intake Visit Reasons: Annual Intake Note: Erlin presents in the office today for his annual physical. Allergies No Known Allergies Allergy (Verified 11/24/24 09:00) Medication List - Last Reconciled 11/24/24 by Tylor White MD betamethasone valerate 0.1% 1 appl topical DAILY PRN 14 days Tobacco use date assessed: 11/24/24 Dental Screening Dental Screen Date: 11/24/24 Did you have a dental visit in the last 12 months?: Yes Did you have a dental problem in the last 6 months where you did not have access to dental care?: No Was dental information given to patient?: Patient has dentist HPI Annual HPI Details 64 y/o male presents for a CPE with f/u labs and health maint. No recent labs to review. A1c today 11/24/24 5.1%. [facility] Medical History (Updated 11/24/24 @ 09:56 by Tylor White MD) Hearing loss RBBB (right bundle branch block) Hernia Surgical History History of hernia surgery Family History Other Mental health disorder Substance use disorder Social History (Updated 11/24/24 @ 09:01 by Macrina Mondragon CMA) Housing: House Alcohol intake: current Alcohol intake frequency: 3 or more drinks per day Alcohol type: beer Patient Tobacco Use Status: Former Tobacco user e-Cigarette/Vaping Use: Never Used Second Hand Smoke Exposure: No service: No Current occupational status: employed Current occupational exposures/hazards: No Cognitive needs: No Hearing needs: No Vision needs: Yes (glasses) Questionnaire PHQ-9 Over the last 2 weeks, how often have you been bothered by any of the following problems? 1. Little interest or pleasure in doing things: not at all 2. Feeling down, depressed, or hopeless: not at all 3. Trouble falling or staying asleep, or sleeping too much: not at all 4. Feeling tired or having little energy: not at all 5. Poor appetite or overeating: not at all 6. Feeling bad about yourself - or that you are a failure or have let yourself or your family down: not at all 7. Trouble concentrating on things, such as reading the newspaper or watching television: not at all 8. Moving or speaking so slowly that other people could have noticed. Or the opposite - being so fidgety or restless that you have been moving around a lot more than usual: not at all 9. Thoughts that you would be better off or of hurting yourself in some way: not at all Total score: 0 Depression Screening Interpretation: Negative Depression Screening Done: Yes 28020 - PHQ-9 Billing: Yes Source: Developed by Drs. Emmett Ma, Abiola Alvarez, Khalif Genao and colleagues, with an educational iftikhar from [employer]. Thrive Questionnaire Date Thrive assessed: 11/24/24 I am a: Patient What is your living situation today?: I have a steady place to live Within the past 12 months, did the food you bought not last and you didn't have the money to get more?: Never true Within the past 12 months, did you worry whether your food would run out before you got money to buy more?: Never true Do you have trouble paying for medicines?: No Do you have trouble getting transportation to medical appointments?: No Do you have trouble paying your heating and electricity bill?: No Do you have trouble taking care of your child, family member or friend?: No Do you have trouble with day-to-day activities such as bathing, preparing meals, shopping, managing finances, etc.?: No Are you currently unemployed and looking for a job?: No Are you interested in more education?: No Please select the resources that you would like help with: None Currently or been in a relationship where the following occur: No concerns reported THRIVE Score: 0 AUDIT C Alcohol Use Questionnaire (AUDIT-C) 1. How often do you have a drink containing alcohol?: 2-3 times a week 2. How many drinks containing alcohol do you have on a typical day when you are drinking?: 1 or 2 3. How often do you have six or more drinks on one occasion?: Never Total Score: 3 MIKE-7 AMB Questionnaire MIKE-7 Date MIKE - 7 assessed: 11/24/24 Feeling nervous, anxious, or on edge: 0 = Not at all Not being able to stop or control worryin = Not at all Worrying too much about different things: 0 = Not at all Trouble relaxin = Not at all Being so restless that it is hard to sit still: 0 = Not at all Becoming easily annoyed or irritable: 0 = Not at all Feeling afraid as if something awful might happen: 0 = Not at all Total MIKE-7 score (0-4 normal; 5-9 mild; 10-14 moderate; 15-21 severe): 0 Source: Developed by Drs. Emmett Ma, Abiola Alvarez, Khalif Genao and colleagues, with an educational iftikhar from [employer]. MIKE-7 Assessment Billing MIKE-7 Assessment Tool: MIKE-7 Assessment 37827 Review of Systems Const Denies chills, Denies fatigue, Denies fever(s), Denies headache(s) and Denies weakness Eyes Denies change in vision ENT Denies dizziness, Denies headache(s), Denies hearing loss, Denies nasal congestion, Denies sinus pain, Denies sinus pressure and Denies sore throat Card Denies chest pain, Denies lightheadedness, Denies dyspnea and Denies other (palpitations) Resp Denies cough, Denies dyspnea and Denies wheezing GI Denies abdominal pain, Denies melena, Denies hematochezia, Denies change in bowel habits, Denies dyspepsia and Denies nausea Denies hematuria and Denies dysuria Musc Denies abnormal gait, Denies myalgias, Denies arthralgias, Denies numbness and Denies tingling Skin/Breast Denies rash, Denies unusual bruising and Denies wounds Neuro Denies abnormal gait, Denies dizziness, Denies headache(s), Denies memory loss, Denies numbness, Denies Sensory deficit (Neuro), Denies tingling and Denies weakness Psych Denies anxiety, Denies depression and Denies memory loss Endo Denies cold intolerance, Denies fatigue, Denies heat intolerance, Denies polydipsia and Denies polyuria Johny/Lymph Denies easy bleeding and Denies easy bruising Aller/Immun Denies wheezing Physical exam (Primary Care) Vital Signs: Last Vital Signs Temp 97.7 F 11/24/24 09:01 Pulse 95 11/24/24 09:01 Resp 14 11/24/24 09:01 BP 118/78 11/24/24 09:01 Pulse Ox 100 11/24/24 09:01 Oxygen Delivery Method Room Air 11/24/24 09:01 BMI result Body Mass Index 25.4 Tobacco/Smoking Status: Tobacco use Status Tobacco use date assessed 11/24/24 11/24/24 09:05 Patient Tobacco Use Status Former Tobacco user 11/24/24 09:01 e-Cigarette/Vaping Use Never Used 11/24/24 09:01 PHQ-9: PHQ-9 Score PHQ-9: Total score 0 11/24/24 09:20 Depression Screening Interpretation: Negative Thrive Assessment: Date of Thrive Assessment Date Thrive assessed 11/24/24 11/24/24 08:59 Currently or been in a relationship where the following occur: No concerns reported Const General: no acute distress, well developed, alert and awake Nutritional Appearance: well nourished Orientation/consciousness: patient oriented x3 HENMT Head: Yes normocephalic and Yes atraumatic Ears: hearing grossly normal bilaterally and TM's normal bilaterally General nose exam: Normal external nose present and Normal nares present Mouth: Normal oral and palatal mucosa present and moist mucous membranes Teeth and gingiva: dentition normal Throat: Yes posterior oropharynx normal Eyes General: appearance normal, both eyes and all related structures Pupils: Equal, round and reactive pupils present and Pupil accommodation reflex normal EOM: EOMs intact bilaterally Neck Neck: Yes normal visual inspection, Yes no lymphadenopathy and Yes trachea midline Thyroid: Thyroid normal Carotids: no bruits Lymphatic: no lymphadenopathy noted Chest Chest palpation & inspection: normal inspection of the chest Resp Effort & Inspection: normal respiratory effort Auscultation: clear to auscultation bilaterally Cardio Rate: regular rate Rhythm: regular rhythm Heart sounds: S1 normal heart sound present, S2 normal heart sound present, no gallops, no murmurs and no rubs Bruits: no abdominal aortic bruits and no carotid bruits GI Palpation (GI): No Abdominal aortic bruit present, Soft to palpation, nontender, No hepatosplenomegaly present and No Rebound tenderness present Auscultation: normal bowel sounds General: Yes no CVA tenderness Back/Spine/Pelvis Back: no CVA tenderness Cervical Spine: cervical ROM normal and No Cervical spine tenderness Thoracic/Lumbar Spine: thoraco-lumbar ROM normal, No pain with thoraco-lumbar ROM, No thoracic spinal tenderness and No lumbar spinal tenderness Skin Lesions: no lesions Rashes: no rashes Trauma: no lacerations or abrasions Wounds: no wounds Nails: normal Neuro General: patient oriented x3 Cranial nerves: Yes Equal, round and reactive pupils present Cognition (Neuro): normal cognition Gait exam (Neuro): Normal gait present Motor exam (neuro): 5/5 motor strength present throughout Sensory Exam: No Sensory deficit (Neuro) Deep tendon reflexes (DTR's): Right patellar reflex intensity grade: 2+ and Left patellar reflex intensity grade: 2+ Extrem General: Yes normal to inspection and No edema Psych Appearance: grossly normal Affect: normal affect Attitude: cooperative Thought process: Normal thought process present Results AMB Hemoglobin A1c AMB Hemoglobin A1c 5.1 % Last Edit by Macrina Mondragon CMA on 11/24/24 09:16 Results Reviewed Results Reviewed: Laboratory Last Values Hgb A1c (Clinic) 5.1 % (4.0-6.0) 11/24/24 09:08 Coding Level of Care Code Est Pt Level 3 (30784) New Pt Prev Care 40-64y(39250) Diagnoses Adult general medical examination Z00.00 Elevated fasting glucose R73.01 Hypercholesteremia E78.00 Right bundle branch block I45.10 Screening for prostate cancer Z12.5 Abnormal EKG R94.31 Additional Codes MIKE-7 Assessment Billing - MIKE-7 Assessment Tool: MIKE-7 Assessment 26892 ([id number]) PHQ-9 - 87831 - PHQ-9 Billing: Yes ([id number]) Assessment & Plan Assessment & Plan (1) Adult general medical examination: Code(s): Z00.00 - Encounter for general adult medical examination without abnormal findings Category: Medical Plan: 64-year-old male presents for complete physical exam Exam within normal limits Encouraged healthy diet with active lifestyle and plenty of exercise (2) Elevated fasting glucose: Code(s): R73.01 - Impaired fasting glucose Category: Medical Plan: History of elevated fasting blood sugar A1c 5.1% is within normal range We will continue to monitor periodically (3) Hypercholesteremia: Code(s): E78.00 - Pure hypercholesterolemia, unspecified Category: Medical Plan: LDL cholesterol is little elevated Encouraged lifestyle changes Will recheck with next lab draw (4) Right bundle branch block: Code(s): I45.10 - Unspecified right bundle-branch block Category: Medical Plan: EKG last year showed PACs and right bundle-branch block Family history of cardiomyopathy EKG today: (5) Screening for prostate cancer: Code(s): Z12.5 - Encounter for screening for malignant neoplasm of prostate Category: Medical Plan: Will check PSA (6) Abnormal EKG: Code(s): R94.31 - Abnormal electrocardiogram [ECG] [EKG] Category: Medical Plan: Normal sinus rhythm Normal axis Right bundle branch block Possible inferior infarct, age undetermined, ST changes V3-V4. Changes noted verses EKG from 12/10/2023 No chest pain Patient would like to increase exercise and I am sending him for a stress test Plan He will follow-up in about a month to review CPE-labs and health maintenance Orders: Orders Microalbumin, Random (w Creat) Today I10 - Essential (primary) hypertension Prostate Specific Antigen Scr Today Z12.5 - Encounter for screening for malignant neoplasm of prostate AMB EKG-In Office Today I49.1 - Atrial premature depolarization AMB Hemoglobin A1c Today R73.01 - Impaired fasting glucose Comprehensive [place]. Panel Fast Today Z00.00 - Encounter for general adult medical examination without abnormal findings Lipid Panel Today Z00.00 - Encounter for general adult medical examination w ithout abnormal findings TSH reflex Free T4 Today Z00.00 - Encounter for general adult medical examination without abnormal findings UA CC w/rflx Micro + Cult Today Z00.00 - Encounter for general adult medical examination without abnormal findings CA stress test Today R94.31 - Abnormal electrocardiogram [ECG] [EKG], Z82.49 - Family history of ischemic heart disease and other diseases of the circulatory system Medications: Refilled betamethasone valerate 0.1% 1 appl topical DAILY 14 days PRN 45 grams 1RF skin irritation betamethasone valerate 0.1% 1 appl topical DAILY PRN 45 grams 1RF skin irritation 14 days
[2024-11-24 09:01] VITALS: BP 118/78; PULSE 95; RESP 14; TEMP 36.5; O2SAT 100; BMI 25.4
== END 2024-11-24 10:00 | disposition home or self-care (01) ==
LOC: HO.HMCFM 08:54
PROVIDERS: PCP Family Medicine; Visit Provider Family Medicine
DX: Z00.00 Encounter for general adult medical examination without abnormal findings (principal); R73.01 Impaired fasting glucose; R94.31 Abnormal electrocardiogram [ECG] [EKG]; E78.00 Pure hypercholesterolemia, unspecified; I45.10 Unspecified right bundle-branch block; Z12.5 Encounter for screening for malignant neoplasm of prostate

== ENCOUNTER → 2024-11-24 08:53 | Outpatient (BNVA) | payer OTHER, SELFPAY | PROVIDERS: PCP Family Medicine; Visit Provider Family Medicine | DX: Z00.00 Encounter for general adult medical examination without abnormal findings (principal); R73.01 Impaired fasting glucose; E78.00 Pure hypercholesterolemia, unspecified; I45.10 Unspecified right bundle-branch block; R94.31 Abnormal electrocardiogram [ECG] [EKG] | CPT/HCPCS: 83036; 96127 ==

== ENCOUNTER → 2024-12-21 09:26 | Outpatient (REF) | payer OTHER, SELFPAY ==
--- NOTE | 2024-12-21 09:28 | CA_ITS ---
Acquisition Time: 2024-12-21 09:38:19 Total Exercise Time: 00:06:30 Test Indications: FM HX ABN EKG Medications: Protocol: DIONISIO Max HR: 137 BPM 86% of Pred: 158 BPM Max BP: 132/80 mmHG Max Work Load: 7.7 METS Exercise stress test with exercise 6 mins 30 secs of Dionisio Protocol, achieving 86% MPHR, with reports of mild SOB, no chets pain, with isolated PVCs and one couplet, with normotensive response to exercise. With baselien T wave inversion in leads V2 and V3 that became more prominent with exercise and with mild ST depression in V4, warranting further eval. Will recommend stress test with nuclear imaging. Test reviewed with Dr. Velasquez. Referred By: Tylor White Electronically Signed By: Elvin Ruiz
== END ==
LOC: HO.CARD 09:26
PROVIDERS: PCP Family Medicine; Visit Provider Family Medicine
DX: R94.31 Abnormal electrocardiogram [ECG] [EKG] (principal); Z82.49 Family history of ischemic heart disease and other diseases of the circulatory system
CPT/HCPCS: 93017

== ENCOUNTER → 2024-12-21 09:28 | Outpatient (BNV) | payer OTHER, SELFPAY | PROVIDERS: PCP Family Medicine | DX: I49.3 Ventricular premature depolarization (principal); R06.02 Shortness of breath | CPT/HCPCS: 93016; 93018 ==

== ENCOUNTER 2024-12-28 14:28 | Outpatient (REF) | payer OTHER, SELFPAY ==
[2024-12-28 18:13] LABS: Appearance Urine Clear; Glucose Urine UA Negative (Negative); PH 5.5 (5.0-9.0); Specific Gravity - Urine 1.020 (1.005-1.025)
[2024-12-28 18:56] LABS: Microalbum/Creatinine Ratio Ur 3.9 ug/mg cr (<30)
== END 2024-12-28 14:29 | disposition home or self-care (01) ==
LOC: HO.WFDLDS 14:28
PROVIDERS: Visit Provider Family Medicine
DX: Z00.00 Encounter for general adult medical examination without abnormal findings (principal); I10 Essential (primary) hypertension
CPT/HCPCS: 81003; 82043; 82570

== ENCOUNTER 2025-01-04 11:36 | Outpatient (AMB) | payer OTHER, SELFPAY ==
[2025-01-04 11:42] VITALS: BP 118/84; PULSE 88; TEMP 36.3; O2SAT 97; BMI 25.6
--- NOTE | 2025-01-04 11:42 | MHC.PC.OV ---
Vital Signs 01/04/25 11:42 Height 5 ft 10 in Weight 178 lb 2 oz BMI 25.6 BP 118/84 Blood Pressure Location Rt brachial Position Sitting Pulse 88 Pulse Source Pulse Oximeter Temp 97.4 F Temp Source Temporal Artery Scan Pulse Oximetry (%) 97 Oxygen Delivery Method Room Air Intake Visit Reasons: f/u echocardiogram, labs Allergies No Known Allergies Allergy (Verified 01/04/25 11:43) Medication List - Last Reconciled 01/04/25 by Tylor White MD betamethasone valerate 0.1% 1 appl topical DAILY PRN 14 days Tobacco use date assessed: 01/04/25 Dental Screening Dental Screen Date: 01/04/25 Did you have a dental visit in the last 12 months?: Yes Did you have a dental problem in the last 6 months where you did not have access to dental care?: No Was dental information given to patient?: Patient has dentist HPI f/u echocardiogram, labs HPI Details 64 y/o male presents to f/u labs, stress test results. Pt had a R bundle branch block, possible inferior infarct age undetermined. ST changes V3-V4. Stress test 12/21/24: Exercise stress test with exercise 6 mins 30 secs of Nirmal Protocol, achieving 86% MPHR, with reports of mild SOB, no chets pain, with isolated PVCs and one couplet, with normotensive response to exercise. With baselien T wave inversion in leads V2 and V3 that became more prominent with exercise and with mild ST depression in V4, warranting further eval. Will recommend stress test with nuclear imaging. Test reviewed with Dr. Velasquez. [facility] Medical History Hearing loss RBBB (right bundle branch block) Hernia Surgical History History of hernia surgery Family History Other Mental health disorder Substance use disorder Social History Housing: House Alcohol intake: current Alcohol intake frequency: 3 or more drinks per day Alcohol type: beer Patient Tobacco Use Status: Former Tobacco user e-Cigarette/Vaping Use: Never Used Second Hand Smoke Exposure: No service: No Current occupational status: employed Current occupational exposures/hazards: No Cognitive needs: No Hearing needs: No Vision needs: Yes (glasses) Questionnaire PHQ-9 Over the last 2 weeks, how often have you been bothered by any of the following problems? 1. Little interest or pleasure in doing things: not at all 2. Feeling down, depressed, or hopeless: not at all 3. Trouble falling or staying asleep, or sleeping too much: not at all 4. Feeling tired or having little energy: not at all 5. Poor appetite or overeating: not at all 6. Feeling bad about yourself - or that you are a failure or have let yourself or your family down: not at all 7. Trouble concentrating on things, such as reading the newspaper or watching television: not at all 8. Moving or speaking so slowly that other people could have noticed. Or the opposite - being so fidgety or restless that you have been moving around a lot more than usual: not at all 9. Thoughts that you would be better off or of hurting yourself in some way: not at all Total score: 0 Depression Screening Interpretation: Negative Depression Screening Done: Yes Source: Developed by Drs. Emmett Ma, Abiola Alvarez, Khalif Genao and colleagues, with an educational iftikhar from [employer] Thrive Questionnaire Date Thrive assessed: 11/24/24 I am a: Patient What is your living situation today?: I have a steady place to live Within the past 12 months, did the food you bought not last and you didn't have the money to get more?: Never true Within the past 12 months, did you worry whether your food would run out before you got money to buy more?: Never true Do you have trouble paying for medicines?: No Do you have trouble getting transportation to medical appointments?: No Do you have trouble paying your heating and electricity bill?: No Do you have trouble taking care of your child, family member or friend?: No Do you have trouble with day-to-day activities such as bathing, preparing meals, shopping, managing finances, etc.?: No Are you currently unemployed and looking for a job?: No Are you interested in more education?: No Please select the resources that you would like help with: None Currently or been in a relationship where the following occur: No concerns reported THRIVE Score: 0 AUDIT C Alcohol Use Questionnaire (AUDIT-C) 1. How often do you have a drink containing alcohol?: 2-3 times a week 2. How many drinks containing alcohol do you have on a typical day when you are drinking?: 1 or 2 3. How often do you have six or more drinks on one occasion?: Never Total Score: 3 MIKE-7 AMB Questionnaire MIKE-7 Date MIKE - 7 assessed: 11/24/24 Feeling nervous, anxious, or on edge: 0 = Not at all Not being able to stop or control worryin = Not at all Worrying too much about different things: 0 = Not at all Trouble relaxin = Not at all Being so restless that it is hard to sit still: 0 = Not at all Becoming easily annoyed or irritable: 0 = Not at all Feeling afraid as if something awful might happen: 0 = Not at all Total MIKE-7 score (0-4 normal; 5-9 mild; 10-14 moderate; 15-21 severe): 0 Source: Developed by Drs. Emmett Ma, Abiola Alvarez, Khalif Genao and colleagues, with an educational iftikhar from [employer] Review of Systems Const Denies chills, Denies fatigue, Denies fever(s), Denies headache(s) and Denies weakness ENT Denies dizziness and Denies headache(s) Card Denies chest pain, Denies lightheadedness, Denies dyspnea and Denies other (Palpitations) Resp Denies cough, Denies dyspnea, Denies wheezing and Denies other ( shortness of breath) Musc Denies numbness and Denies tingling Neuro Denies dizziness, Denies headache(s), Denies numbness, Denies tingling, Denies paresthesias and Denies weakness Psych Denies anxiety and Denies depression Endo Denies fatigue Aller/Immun Denies wheezing Physical exam (Primary Care) Vital Signs: Last Vital Signs Temp 97.4 F 01/04/25 11:42 Pulse 88 01/04/25 11:42 BP 118/84 01/04/25 11:42 Pulse Ox 97 01/04/25 11:42 Oxygen Delivery Method Room Air 01/04/25 11:42 BMI result Body Mass Index 25.6 Tobacco/Smoking Status: Tobacco use Status Tobacco use date assessed 01/04/25 01/04/25 11:57 Patient Tobacco Use Status Former Tobacco user 01/04/25 11:57 e-Cigarette/Vaping Use Never Used 01/04/25 11:57 PHQ-9: PHQ-9 Score PHQ-9: Total score 0 01/04/25 11:57 Depression Screening Interpretation: Negative Thrive Assessment: Date of Thrive Assessment Date Thrive assessed 11/24/24 01/04/25 11:57 Currently or been in a relationship where the following occur: No concerns reported Const General: no acute distress and well developed Nutritional Appearance: well nourished Orientation/consciousness: patient oriented x3 HENMT Head: Yes normocephalic and Yes atraumatic Eyes General: appearance normal, both eyes and all related structures Pupils: Equal, round and reactive pupils present EOM: EOMs intact bilaterally Resp Effort & Inspection: normal respiratory effort Auscultation: clear to auscultation bilaterally Cardio Rate: regular rate Rhythm: regular rhythm Heart sounds: S1 normal heart sound present, S2 normal heart sound present, no gallops, no murmurs and no rubs Neuro General: patient oriented x3 and gait normal Cranial nerves: Yes Equal, round and reactive pupils present Psych Affect: normal affect Coding Level of Care Code Est Pt Level 4 (27515) Diagnoses Abnormal EKG R94.31 Right bundle branch block I45.10 Abnormal stress test R94.39 Assessment & Plan Assessment & Plan (1) Abnormal EKG: Code(s): R94.31 - Abnormal electrocardiogram [ECG] [EKG] Category: Medical (2) Right bundle branch block: Code(s): I45.10 - Unspecified right bundle-branch block Category: Medical (3) Abnormal stress test: Code(s): R94.39 - Abnormal result of other cardiovascular function study Category: Medical Plan On stress test, Patient had baseline T wave inversion in leads V2 and V3 that became more prominent with exercise and with mild ST depression in V4, warranting further eval. - Recommend stress test with nuclear imaging. Test ordered. Pt wants to start exercising more. Referred him to Cardiology He has no current chest pain. Advised he hold off on increasing exercise for now. Advised to seek medical attention if he is having any chest pain. If he has chest pain lasting longer than few minutes after resting, he should go to ED. -- Patient has mildly elevated fasting blood sugar and also mildly elevated LDL cholesterol. He will work on lifestyle changes. We discussed that we may want to change his goal for LDL cholesterol to less than 70 based on pending testing. Patient understands. Orders: Orders NM cardiolite stress test Today R94.39 - Abnormal result of other cardiovascular function study CA stress test Today R94.31 - Abnormal electrocardiogram [ECG] [EKG], R94.39 - Abnormal result of other cardiovascular function study Referrals Cardiology Referral R94.39 - Abnormal result of other cardiovascular function study
== END 2025-01-04 12:30 | disposition home or self-care (01) ==
LOC: HO.HMCFM 11:37
PROVIDERS: PCP Family Medicine; Visit Provider Family Medicine
DX: R94.31 Abnormal electrocardiogram [ECG] [EKG] (principal); I45.10 Unspecified right bundle-branch block; R94.39 Abnormal result of other cardiovascular function study